=== PATIENT | male | born 1965 | race Caucasian/White ===

== ENCOUNTER 2017-09-04 05:40 | Inpatient (IN) | payer MEDICAID ==
[2017-09-04] VITALS (47 sets, daily range): BP systolic 84–146; BP diastolic 50–99
[~2017-09-04] VITALS: Ht 170.2 cm; Wt 91.6 kg
--- NOTE | 2017-09-04 05:40 | NUR ---
PT BIB AMBULANCE DUE TO DIFFICULTY BREATHING, PT INTUBATED BY STEVE PATTERSON WITH A #7.5 ETT SECURED AT 25 LIP LINE WITH AN ANCHOR FAST. PT PLACED ON VENT WITH NOTED SETTINGS AC 10 VT 500 FIO2 50% PEEP +5. GOOD COLOR CHANGE ON EZ CAP NOTED. REPORT GIVEN TO DAYSHIFT FOR CONTINUITY OF CARE.
--- NOTE | 2017-09-04 05:40 | NUR ---
52/M BIBA FOR SOB, PER EMS PT WAS FOUNG ON THE STREETS, UNKNOWN PMH PT SATS AT 84% WHILE BAGGING. EMS ATTEMPTED RSI, UNABLE TO ESTABLISH. ER MD GLASGOW ,RT, AT BEDSIDE 0544 RSI STARTED, ETOMIDATE 20MG IVP IN PER VERBAL ORDER- GLASGOW 544 SUCCINYLCHOLINE 60MG IVP IN PER VERBAL ORDER- GLASGOW 545 MYAH UGARTE ATTEMPTING INTUBATION 0552 PT CARLOS AT 43, VERBAL ORDER TO GIVE ATROPINE 1MG, PT AT 92HR 0559 VERBAL ORDER TO GIVE SUCC 60MG 0559 VERBAL ORDER TO GIVE SUCC 40MG 0600 ETT ESTABLISHED, SATS 93% ON VENT, RT AT BEDSIDE CXR STAT CALLED. Addendum: 09/04/17 at 0711 by MARIO PT HAS FIRM MASS ON NECK
--- NOTE | 2017-09-04 05:40 | NUR ---
BIBA TO ER BED 10
[2017-09-04] MEDS ORDERED: PROPOFOL 200 MG/20 ML VIAL IV ONE (06:08)
[2017-09-04] MEDS ORDERED: PROPOFOL 1000 MG/100 ML PREMIX 100 ML IV ONE ×2 (06:08→06:10)
[2017-09-04] MEDS ORDERED: ALBUTEROL SULFATE/IPRATROPIU 3 ML SOL IH ONE ×2 (06:10→06:28)
--- NOTE | 2017-09-04 06:10 | NUR ---
RECIVED PT INTUBATED WITH 7.5 28 CM AT THE GUM LINE BREATH SOUNDS PRESENT BIAT PLACED ON VENT WITH SETTINGS CHARTED X RAY DONE ETT BACKED OUT TO 24 ANOTHER XRAY DONE TUBE PLACEMENT OK XRAY CHECKED BY DR PATY SULLIVAN PT FOR SPUTUM AND SENT TO LAB VENT PLUGGED INTO RED OUTLET AMBU BAG AT BEDSIDE
--- NOTE | 2017-09-04 06:50 | NUR ---
PT KICKING AND RESTLESS, ATTEMPTING TO PULL OUT TUBES AND IV LINES. ATTEMPT TO REORIENT AND CALM PT, UNSUCCESSFUL, PLACED IN SOFT WRIST RESTRAINTS.
--- NOTE | 2017-09-04 07:00 | NUR ---
PT REMOVED FROM RESTRAINTS, PT STILL ATTEMPTING TO KICK, MOVE AND PULL OUT TUBING, PT PLACED BACK IN RESTRAINTS, WILL CONTINUE TO MONITOR, SKIN INTACT, +CMS.
[2017-09-04 07:08] LABS: HEMOGLOBIN 12.2 g/dL (12.0-18.0); MEAN CORPUSCULAR HEMOGLOBIN 33 pg (27-31); MEAN CORPUSCULAR HGB CONC 35 g/dL (33-37); MEAN CORPUSCULAR VOLUME 95 fL (80-94); PLATELET COUNT (AUTO) 289 K/uL (140-450); RED BLOOD CELL COUNT(AUTO) 3.68 MIL/uL (4.20-6.10); RED CELL DISTRIBUTION WIDTH 12.2 % (11.6-13.7); WHITE BLOOD COUNT (AUTO) 19.6 K/uL (4.8-10.8)
[2017-09-04] MEDS ORDERED: PIPERACILLIN/TAZOBACTAM 4.5 GM in DEXTROSE 5% 100 ML IV ONE (07:10)
[2017-09-04] MEDS ORDERED: NACL 0.9% 1,000 ML IV SCH ×2 (07:14→08:15)
--- NOTE | 2017-09-04 07:15 | NUR ---
Pt report given to KO CARDONA. Transfer of care at this time.
[2017-09-04] MEDS: NACL 0.9% 1,000 ML IV SCH ×4 (07:17→21:07)
[2017-09-04 07:24] LABS: LYMPHOCYTES % (MANUAL) 8 % (20-46); MONOCYTES % (MANUAL) 4 % (5-12)
[2017-09-04] MEDS ORDERED: PIPERACILLIN/TAZOBACTAM 2.25 GM VIAL IV ONE (07:27)
--- NOTE | 2017-09-04 07:30 | NUR ---
ASSUMED PATIENT CARE, CONCUR WITH PREVIOUS ASSESSMENTS. AIRWAY: ON VENT AC 14, FIO2 100%, TV 550, PEEP 5. 7.5 ETT AT 25 CM LIP LINE. LUNG SOUNDS: RHONCHI, WHEEZES. SEDATION WITH PROPOFOL AT 40 MCG/KG/MIN, GCS=3. SWEDISH 16 BULLARD CATHETER FOR CRITICALLY ILL I&O MONITORING.
--- NOTE | 2017-09-04 07:30 | NUR ---
CHANGED VT TO 550 AND CHANGED RR [address] PARADA
[2017-09-04 07:31] LABS: ALBUMIN 3.4 g/dL (3.4-5.0); ANION GAP 16.4 (8-16); CREATININE 1.6 mg/dL (0.7-1.3); POTASSIUM 3.4 mmol/L (3.5-5.1); TOTAL BILIRUBIN 0.6 mg/dL (0.0-1.0)
[2017-09-04 08:10] LABS: PROTHROMBIN TIME 12.6 secs (10.8-13.4)
[2017-09-04] MEDS ORDERED: ACETAMINOPHEN 325 MG TAB PO PRN (08:20)
[2017-09-04] MEDS ORDERED: ACETAMINOPHEN 325 MG TAB NG PRN (08:30)
[2017-09-04] MEDS ORDERED: MIDAZOLAM MDV 50 MG in NACL 0.9% 40 ML IV PRN (08:30)
[2017-09-04 08:39] LABS: APPEARANCE,URINE CLEAR (CLEAR); BILIRUBIN,URINE NEGATIVE (NEGATIVE); BLOOD, URINE 1+ (NEGATIVE); COLOR,URINE YELLOW (YELLOW); LEUKOCYTE ESTERASE ,URINE NEGATIVE (NEGATIVE); NITRITE, URINE NEGATIVE (NEGATIVE); UGLUCOSE 1+ (NEGATIVE)
[2017-09-04] MEDS ORDERED: ALBUTEROL SULFATE/IPRATROPIU 3 ML SOL IH PRN (08:40)
--- NOTE | 2017-09-04 09:25 | NUR ---
DISPO AND MEDICAL DECISION MAKING, INPATIENT ICU ADMISSION. BEDSIDE REPORT GIVEN TO WEB SERVICES DEVELOPER. CONTINUITY OF CARE ENDORSED. TRANSPORTED VIA GURNEY WITH RT, EMT, AND RN VIA ACLS PROTOCOL.
--- NOTE | 2017-09-04 09:37 | NUR ---
received patient from ED per erika. Bedside report received. Patient on ETT to vent. Right and left hand and right AC peripheral iv patent and intact. Skin warm to touch wnl, toenails wnl, with hair growth, scarring to left knee and right medial ankle and +2 bilateral pedal pulses. No edema noted. FC in place to clear yellow urine in moderate amount. call light within reach. bed at lowest possible position. will continue to monitor patient.
--- NOTE | 2017-09-04 09:37 | NUR ---
PT TRANSFERED TO ICU [address] JACQUES BEDSIDE CHANGED VENT SETTINGS FROM AC TO ACPC CHARTED VENT PLUGGED INTO RED OUTLET AMBU BAG BEDSIDE
[2017-09-04 09:45] LABS: RBC,URINE 0-5 (RARE) /HPF (0-5); WBC,URINE 0-5 (RARE) /HPF (0-5)
[2017-09-04 09:57] LABS: FREE T4 (FREE THYROXINE) 0.14 ng/dL (0.76-1.46); PHOSPHORUS 4.6 mg/dL (2.5-4.9)
[2017-09-04 10:42] LABS: CHOL/HDL RATIO 2.4 (1-4.5)
[2017-09-04 10:44] LABS: BARBITURATE, URINE NEG. ng/ml (NEG <=200); BENZODIAZEPINE, URINE NEG. ng/mL (NEG <=200); CANNABINOID, URINE NEG. ng/mL (NEG <=50); COCAINE, URINE NEG. ng/mL (NEG <=300); OPIATE, URINE NEG. ng/mL (NEG <=2000); PHENCYCLIDINE SCREEN,URINE NEG. ng/mL (NEG <=25)
--- NOTE | 2017-09-04 11:10 | NUR ---
REPORT GIVEN TO RAGHAV CARDONA FOR CONTINUITY OF CARE. PATIENT IN STABLE CONDITION.
[2017-09-04 11:31] LABS: THYROID STIMULATING HORMONE 94.19 uIU/mL (0.34-3.74)
[2017-09-04] MEDS ORDERED: LEVOTHYROXINE 200 MCG VIAL IV SCH (13:00)
[2017-09-04] MEDS: ALBUTEROL SULFATE/IPRATROPIU 3 ML SOL IH SCH ×2 (13:18→19:16)
--- NOTE | 2017-09-04 13:34 | NUR ---
decreased pressure control to 16 rn aware
[2017-09-04] MEDS ORDERED: KCL 20 MEQ/WATER INJ PREMIX 200 ML IV ONE (13:45)
--- NOTE | 2017-09-04 13:46 | NUR ---
FENTANYL 40MCG AT 4ML ONGOING, PT EYES CLOSE, OFF RESTRAINT,BULLARD OUTPUT AT THIS TIME 1800 ML
[2017-09-04] MEDS: LEVOTHYROXINE 200 MCG VIAL IV SCH (14:10)
[2017-09-04] MEDS: methylPREDNISolone SS 40 MG/ML VIAL IVP SCH ×2 (14:10→21:02)
--- NOTE | 2017-09-04 14:28 | NUR ---
DR. BONILLA HERE PER JUST D/C FENTANYL FOR NOW AND OBSERVE PT
[2017-09-04] MEDS ORDERED: POTASSIUM CHLORIDE 40 MEQ in NACL 0.9% 250 ML IV SCH (14:30)
[2017-09-04] MEDS: PIPER/TAZO 3.375GM/D5W PREMIX 50 ML IV SCH ×2 (15:16→19:53)
--- NOTE | 2017-09-04 15:39 | NUR ---
DECREASED PC TO 14 AND DECREASED FIO2 TO .80 RN AWARE
--- NOTE | 2017-09-04 15:39 | NUR ---
endorsed to sadaf CARDONA
[2017-09-04] MEDS: LEVOFLOXACIN 750 MG/D5W PREMIX 150 ML IV SCH (15:56)
--- NOTE | 2017-09-04 17:13 | NUR ---
VITAL SIGNS STABLE. NO S/SX OF ACUTE DISTRESS AT THIS TIME. SAFETY MEASURES ENSURED. WILL CONTINUE TO MONITOR.
--- NOTE | 2017-09-04 17:54 | NUR ---
CONTINUED TO MONITOR PT ON VENT WITH SETTINGS CHARTED BREATH SOUNDS PRESENT BILAT COARSE SXN PT WITH MIN TO MOD AMT REDDISH SECS AMBU BAG AT BEDSIDE VENT PLUGGED INTO RED OUTLET
--- NOTE | 2017-09-04 19:20 | NUR ---
REPORT GIVEN TO RACE AND SPORTS BOOK WRITER RN FOR CONTINUITY OF CARE. NO ACUTE DISTRESS NOTED AT THIS TIME.
--- NOTE | 2017-09-04 19:30 | NUR ---
ASSUMED CARE OF PT.INITIAL ASSESSMENT COMPLETED.PT SEDATED.SR ON MONITOR.W/OGT NOTED.PLACEMENT VERIFIED W/RN PAM GUERRERO.ON OGT FEEDING NUTREN PULMONARY AT 30ML/HR.W/PERIPHERAL IV TO RT AC G18 INTACT INFUSING IVF ORDERED AND VERSED DRIP AT 1MG/HR.SALINE LOCK TO LT AND RT WRIST G20.W/BULLARD CATHETER TO BSD DRAINING SMALL AMT OF YELLOW URINE.SKIN INTACT.FLACC 0
--- NOTE | 2017-09-04 20:00 | NUR ---
ORAL CARE USING VAP KIT RENDERED.PT ON DAILY PROTONIX FOR GI PROPHYLAXIS AND HEPARIN FOR DVT PROPHYLAXIS.REPOSITIONED
--- NOTE | 2017-09-04 21:00 | NUR ---
PHONE CALL TO DR HODGE; VERIFIED SOLU MEDROL AND SOLU CORTEF FOR 2100; SAID TO GIVEN BOTH MEDICATION ORDERED
[2017-09-04] MEDS: HYDROCORTISONE NA SUCC 100 MG/2 ML VIAL IV SCH (21:01)
--- NOTE | 2017-09-04 23:05 | NUR ---
PTS CONDITION REMAINS UNCHANGED.REPOSITIONED.FLACC 0
[2017-09-05] VITALS (35 sets, daily range): BP systolic 84–127; BP diastolic 47–90
--- NOTE | 2017-09-05 02:00 | NUR ---
NO CHANGE IN CONDITION.REPOSITIONED.FLACC 0.SECRETIONS SUCTIONED NEEDED.
[2017-09-05] MEDS: PIPER/TAZO 3.375GM/D5W PREMIX 50 ML IV SCH ×4 (03:38→20:20)
[2017-09-05] MEDS: ALBUTEROL SULFATE/IPRATROPIU 3 ML SOL IH SCH ×4 (03:41→20:24)
--- NOTE | 2017-09-05 04:28 | NUR ---
PT STILL SEDATED.OPENS EYES TO SHAKING.ABLE TO NOD OR SHAKE HEAD TO QUESTIONS.STILL ON OGT FEEDING.NO RESIDUALS NOTED.FLACC 0.REPOSITIONED
[2017-09-05] MEDS: HYDROCORTISONE NA SUCC 100 MG/2 ML VIAL IV SCH ×3 (04:58→21:04)
[2017-09-05] MEDS: methylPREDNISolone SS 40 MG/ML VIAL IVP SCH ×3 (04:58→21:04)
[2017-09-05] MEDS: NACL 0.9% 1,000 ML IV SCH ×3 (04:59→23:06)
[2017-09-05 05:18] LABS: HEMATOCRIT 40.5 % (36-52); HEMOGLOBIN 13.5 g/dL (12.0-18.0); MEAN CORPUSCULAR HEMOGLOBIN 32 pg (27-31); MEAN CORPUSCULAR HGB CONC 33 g/dL (33-37); MEAN CORPUSCULAR VOLUME 96 fL (80-94); PLATELET COUNT (AUTO) 285 K/uL (140-450); RED BLOOD CELL COUNT(AUTO) 4.21 MIL/uL (4.20-6.10); RED CELL DISTRIBUTION WIDTH 12.4 % (11.6-13.7); WHITE BLOOD COUNT (AUTO) 16.1 K/uL (4.8-10.8)
--- NOTE | 2017-09-05 05:38 | NUR ---
LOWERED FIO2 TO 50%. SATS ATBTHIS TIME ARE 96%
[2017-09-05 06:18] LABS: ANION GAP 16.3 (8-16); CREATININE 1.7 mg/dL (0.7-1.3); POTASSIUM 3.3 mmol/L (3.5-5.1)
[2017-09-05 06:19] LABS: CHOL/HDL RATIO 2.2 (1-4.5); MAGNESIUM 1.8 mg/dL (1.8-2.4); PHOSPHORUS 4.6 mg/dL (2.5-4.9)
[2017-09-05 06:23] LABS: LYMPHOCYTES % (MANUAL) 10 % (20-46); MONOCYTES % (MANUAL) 2 % (5-12)
--- NOTE | 2017-09-05 06:32 | NUR ---
DR SYKES IN THE UNIT.UPDATED ON PTS PRESENT CONDITION.MADE AWARE PTS URINE OUTPUT 140ML THIS SHIFT.NO NEW ORDER AT THIS TIME.
--- NOTE | 2017-09-05 07:30 | NUR ---
RECEIVE REPORT FROM NANCY CARDONA .PT SLEEPING UNDER SEDATION ORAL INTUBATED ETT TO VENT IV FLUID ON RT AC AND RT HAND ALSO LEFR HAND, THE SITES IS DRY AND INTACT HIS NECK HAVE MASS ON HE CAN ONLY TURN TO RT. SIDE. SKIN INTACT NG TUBE FEEDING WITH NUTREN PULMO. ABD SOFT. B/S ACTIVE, BULLARD CATH DRAIN DARK ELOINA URINE.
[2017-09-05] MEDS ORDERED: KCL 20 MEQ/WATER INJ PREMIX 200 ML IV ONE (08:20)
--- NOTE | 2017-09-05 08:20 | NUR ---
DR RICO AND HIS TEAM MAKING ROUND.
[2017-09-05] MEDS: LEVOTHYROXINE 200 MCG VIAL IV SCH (08:35)
[2017-09-05] MEDS: PANTOPRAZOLE 40 MG INJ VIAL IVP SCH (08:35)
--- NOTE | 2017-09-05 08:35 | NUR ---
PT HAS BEEN SCREENED AND CATEGORIZED HIGH NUTIRITON RISK. PT WILL BE SEEN WITHIN 1-2 DAYS OF ADMISSION. 09/04/17-09/05/[address]
--- NOTE | 2017-09-05 09:17 | NUR ---
RECEIVED CALL BACK FROM REGARDING ABG RESULTS, PHYSICIAN STATES SHE WILL CALL BACK AT A LATER TIME FOR RESULTS.
[2017-09-05] MEDS ORDERED: POTASSIUM CHLORIDE 40 MEQ in NACL 0.9% 250 ML IV SCH (09:30)
--- NOTE | 2017-09-05 10:15 | NUR ---
CALLED BACK AND ABG RESULTS WERE GIVEN. PHYSICIAN REQUESTS RR DECREASED TO 12.
--- NOTE | 2017-09-05 10:30 | NUR ---
GEORGIE PENA ON UNIT TURN OFF SEDATION FOR SEDATION VACATION.
[2017-09-05] MEDS ORDERED: PROBIOTIC SCREEN 1 EA MISC MC PRN (11:10)
--- NOTE | 2017-09-05 11:11 | NUR ---
FIO2 DECREASED TO 40%. PT NOT SOB NOT IN RESPIRATORY DISTRESS.
--- NOTE | 2017-09-05 11:15 | NUR ---
PT OFF SEDATION AND PLACED ON CPAP 5 PS 12 PER REQUEST OF . PT TOLERATING WELL AT THIS TIME WILL MONITOR CLOSELY.
--- NOTE | 2017-09-05 11:32 | NUR ---
PT REPEATEDLY GOES APNEIC DURING SBT. BACKUP VENTILATION MODE TURNED ON. PT RETURNED TO ORIGINAL VENT SETTINGS. NURSE MERLYN GRAJEDA.
--- NOTE | 2017-09-05 13:22 | NUR ---
PT SUCTIONED OBTAINED SMALL AMOUNT OF THICK YELLOW SECRETIONS, ETT AIRWAY IS PATENT AND REMAINS SECURE.
[2017-09-05] MEDS: fentaNYL 1 MG in NACL 0.9% 80 ML IV PRN (14:11)
--- NOTE | 2017-09-05 14:11 | NUR ---
BACK ON FENTANYL VITAL SIGN WITH IN NORMAL LIMIT.
--- NOTE | 2017-09-05 14:16 | NUR ---
09/05/2017 RD INITIAL ASSESSMENT COMPLETED PLEASE REFER TO NUTRITION ASSESSMENT UNDER CARE ACTIVITY FOR ESTIMATED NUTRITIONAL NEEDS. PT RECEIVING NUTREN PULMONARY @ 30 ML/HOUR FOR NUTRIITON SUPPORT. THIS IS PROVIDING 1080 KCAL AND 49 GM PRO/DAY TO MEET 59% EST KCAL AND 45% EST PRO NEEDS/DAY. MAY CONSIDER: NUTREN PULMONARY @ 60 ML/HR THIS WILL PROVIDE 2160 KCALS, 98 GM PRO AND 1126 ML WATER PER DAY. THIS WILL MEET 100% EST KCAL AND 90% EST PRO NEEDS/DAY RD TO FOLLOW-UP IN 2-3 DAYS PATIENT IS HIGH RISK. LA NENA WATTS, RD
[2017-09-05 14:19] LABS: T3 UPTAKE 17 % (24-39)
--- NOTE | 2017-09-05 14:45 | NUR ---
ABLE TO OBTAIN PT.MOTHER TELEPHONE CALL AND GET IN TOUCH WITH HER.
[2017-09-05] MEDS: LEVOFLOXACIN 750 MG/D5W PREMIX 150 ML IV SCH (15:12)
--- NOTE | 2017-09-05 16:00 | NUR ---
PATIEN BROTHER VERONICA BISWAS CALL ,HAVE HIM GET IN OUCH WITH DR. ARGUETA
--- NOTE | 2017-09-05 16:25 | NUR ---
CONSENT FOR CT SCAN WITH CONTRASS OBTAIN FROM YVON BISWAS.
--- NOTE | 2017-09-05 17:34 | NUR ---
PT REMAINS ON DOCUMENTED SETTINGS. ETT REMAINS SECURE WITH A PATENT AIRWAY. PT ORALLY SUCTIONED. PT IS NOT SOB AND NOT IN RESPIRATORY DISTRESS. VENT ALARMS REMAIN ON AND FUNCTIONING.
[2017-09-05 17:59] LABS: T4 (THYROXINE) <.1 ug/dL (4.5 - 12.0)
--- NOTE | 2017-09-05 19:30 | NUR ---
REPORT GIVE TO TRESSA CARDONA.
--- NOTE | 2017-09-05 19:31 | NUR ---
RECEIVED REPORT FORM DULCE ZULETA AT BEDSIDE, PT IS SEDATED, RASS 0, ON SOFT RESTRAIN TO CLAUDIO.WRIST. FLACC 0, VSS, ETT TO VENT WITH SETTING OF PC, FIO2 40, RR 12, PEEP 6, RHONCHI LUNG SOUNDS, OTG IN PLACE WITH FEEDING ARTS THERAPIST AT 50ML/HR, 0 RESIDUAL AT THIS TIME, PERIPHERAL LINE TO RIGHT FOREARM 18GA AND LEFT HAND 20GA, RUNNING NS AT 126ML/HR, FENTANYL AT 45MCG/HR. SR ON DRILLING AND PRODUCTION SUPERINTENDENT, SOFT ABDOMEN WITH ACTIVE BOWEL SOUNDS, BULLARD CATHETER IN PLACE WITH CLEAR YELLOW URINE VIA GRAVITY. SKIN IS INTACT, WARM AND DRY TO TOUCH, GENERALIZED WEAKNESS NOTED. HOB ELEVATED 30 DEGREES, SAFETY PRECAUTION IN PLACE, WILL CONTINUE TO MONITOR.
--- NOTE | 2017-09-05 20:00 | NUR ---
PT IS AWAKE AND CALM, ABLE TO KNOCK HEAD TO ANSWER SIMPLE QUESTIONS, RELEASED RESTRAIN AT THIS TIME DUE TO PT KNOCKED HEAD TO AGREE TO NOT REMOVE TUBES OR DO ANY THING HURT HIMSELF.
--- NOTE | 2017-09-05 20:25 | NUR ---
PT RECEIVED FROM [facility] ON NOTED VENT SETTINGS. PT AWAKE, HAS A #7.5 ETT SECURED AT 23 LIP LINE WITH AN ANCHOR FAST. BREATH SOUNDS DIMINISHED RHONCHI, HHN TX GIVEN VIA INLINE ORDERED. PT LAVAGED AND SUCTIONED SMALL AMOUNT THICK YELLOW SECRETIONS. NO ADVERSE EFFECTS NOTED. VENT ALARMS ON AND AUDIBLE. VENT PLUGGED INTO RED ELECTRICAL OUTLET. AMBU BAG AT [facility].
--- NOTE | 2017-09-05 22:00 | NUR ---
PT SMALL AMOUNT OF NOSE BLEEDING NOTED, DR. HODGE MADE AWARE. VSS, NO S/S OF DISTRESS, POSITION CHANGED FOR OFF LOAD PRESSURE.
--- NOTE | 2017-09-05 23:26 | NUR ---
VENT CHECKED. PT AWAKE, LAVAGED AND SUCTIONED SMALL AMOUNT THICK PALE YELLOW SECRETIONS. NO ADVERSE EFFECTS NOTED.
[2017-09-06] VITALS (54 sets, daily range): BP systolic 101–127; BP diastolic 57–88
--- NOTE | 2017-09-06 | NUR ---
PT IS AWAKE, ABLE TO COMMUNICATE WITH CATE ALFONSO, PT WANTS TO CONTACT HIS FAMILY MEMBERS, INFORMED PT'S BROTHER. ORAL CARE PROVIDED, POSITION CHANGED FOR OFF LOAD PRESSURE.
[2017-09-06] MEDS: ALBUTEROL SULFATE/IPRATROPIU 3 ML SOL IH SCH ×4 (01:46→19:17)
[2017-09-06] MEDS: PIPER/TAZO 3.375GM/D5W PREMIX 50 ML IV SCH ×4 (01:48→21:40)
--- NOTE | 2017-09-06 02:00 | NUR ---
PT IS RESTING IN BED, NO CHANGE OF CONDITION AT THIS TIME, POSITION CHANGE FOR OFF LOAD PRESSURE.
--- NOTE | 2017-09-06 03:44 | NUR ---
VENT CHECKED. HME CHANGED. PT LAVAGED AND SUCTIONED FOR MOD AMOUNT THICK YELLOW SECRETIONS. NO ADVERSE EFFECTS NOTED.
--- NOTE | 2017-09-06 04:00 | NUR ---
AM CARE AND F/C PROVIDED, ORAL CARE PROVIDED, POSITION CHANGED FOR OFF LOAD PRESSURE. VSS.
[2017-09-06] MEDS: HYDROCORTISONE NA SUCC 100 MG/2 ML VIAL IV SCH ×3 (05:13→21:42)
[2017-09-06] MEDS: methylPREDNISolone SS 40 MG/ML VIAL IVP SCH ×3 (05:14→21:41)
[2017-09-06 05:55] LABS: HEMATOCRIT 35.2 % (36-52); HEMOGLOBIN 11.5 g/dL (12.0-18.0); MEAN CORPUSCULAR HEMOGLOBIN 32 pg (27-31); MEAN CORPUSCULAR HGB CONC 33 g/dL (33-37); MEAN CORPUSCULAR VOLUME 97 fL (80-94); PLATELET COUNT (AUTO) 313 K/uL (140-450); RED BLOOD CELL COUNT(AUTO) 3.63 MIL/uL (4.20-6.10); RED CELL DISTRIBUTION WIDTH 12.4 % (11.6-13.7); WHITE BLOOD COUNT (AUTO) 18.3 K/uL (4.8-10.8)
--- NOTE | 2017-09-06 06:00 | NUR ---
NO CHANGE OF CONDITION AT THIS TIME, VSS, POSITION CHANGED FOR OFF LOAD PRESSURE.
[2017-09-06 06:18] LABS: ANION GAP 15.1 (8-16); CARBON DIOXIDE 23.6 mmol/L (21-32); CREATININE 1.4 mg/dL (0.7-1.3); POTASSIUM 3.7 mmol/L (3.5-5.1)
[2017-09-06 06:28] LABS: FREE T4 (FREE THYROXINE) 0.24 ng/dL (0.76-1.46); MAGNESIUM 1.9 mg/dL (1.8-2.4)
[2017-09-06 06:30] LABS: LYMPHOCYTES % (MANUAL) 6 % (20-46); MONOCYTES % (MANUAL) 4 % (5-12)
--- NOTE | 2017-09-06 07:30 | NUR ---
REPORT GIVEN TO DULCE AYERS AT BEDSIDE FOR CONTINUE OF CARE, PT IS IN STABLE CONDITION AT THIS TIME.
--- NOTE | 2017-09-06 07:30 | NUR ---
PT RESTING IN BED COMFORTABLY. NO ACUTE DISTRESS NOTED. A/O X4. ABLE TO MAKE NEEDS KNOWN VIA WRITTING. SR ON MONITOR. ETT TO VENT A/C PC MODE WITH SETTING FIO2 40 11 [address] 6[address] OGT IN PL[address] ATTACHED TO FEEDING PUMP. ON FEEDING NUTREN PULMONARY AT 50 ML/HR. LUNGS SOUND CLEAR ON AUSCULTATION. PERIPHERAL LINE ON RIGHT FOREARM 18 INTACT. RUNNING FENTANYL AT 45 MCG/HR AND NS AT 126 ML/HR. PERIPHERAL LINE ON LEFT HAND 20 G SALINE LOCK. ABDOMEN ROUND, SOFT AND NON-TENDER. BOWEL SOUND PRESENT ON ALL FOUR QUADRANTS. S/P SURGICAL SCAR ON LEFT KNEE AND RIGHT ANKLE. SCDS ON PLACE. NO C/O PAIN AT THIS TIME. CALL LIGHT WITHIN REACH, BED IN LOW POSITION, LOCKED. WILL CONTINUE TO MONITOR.
--- NOTE | 2017-09-06 08:30 | NUR ---
DR. MAYFIELD IN TO SEE PT. WILL FOLLOW UP ON ORDER.
[2017-09-06] MEDS: NACL 0.9% 1,000 ML IV SCH ×2 (09:00→15:56)
--- NOTE | 2017-09-06 09:20 | NUR ---
PT SUCTIONED OBTAINED SMALL AMOUNT OF THICK YELLOW SECRETIONS, AIRWAY IS PATENT AND ETT IS SECURE. PT IS NOT SOB AND NOT IN RESPIRATORY DISTRESS.
[2017-09-06] MEDS: PANTOPRAZOLE 40 MG INJ VIAL IVP SCH (09:27)
[2017-09-06] MEDS: LEVOTHYROXINE 200 MCG VIAL IV SCH (09:27)
--- NOTE | 2017-09-06 09:30 | NUR ---
ADMINISTERED MEDICATION. TOLERATING WELL. NO ACUTE DISTRESS. NO CHANGWE IN LOC. SR ON MONITOR. WILL CONTINUE TO MONITOR.
--- NOTE | 2017-09-06 10:45 | NUR ---
PT ABLE TO GIVE PROVIDE DAUGHTERS NAME. ABLE TO CONTACT DAUGHTER. GAVE INFORMATION ABOUT PTS CONDITION. WILL VISIT HER DAD THIS EVENING.
--- NOTE | 2017-09-06 12:17 | NUR ---
EXPLAINED PT ABOUT THE PROCEDURE NEEDS TO BE DONE THAT IS CT OF NECK AND CHEST WITH CONTRAST . PT WANTS TO WAIT FOR THE PROCEDURE TILL HIS DAUGHTER COMES. UNABLE TO GET CONSENT FOR THE PROCEDURE.
[2017-09-06] MEDS: MORPHINE SULFATE 2 MG/ML SYR IVP PRN ×2 (12:45→18:37)
[2017-09-06] MEDS: fentaNYL 1 MG in NACL 0.9% 80 ML IV PRN (13:16)
--- NOTE | 2017-09-06 13:21 | NUR ---
PT RESTING IN BED COMFORTABLY. NO ACUTE DISTRESS NOTED. NO CHANGE IN LOC. WILL CONTINUE TO MONITOR. ON CONTINUOUS FENTANYL DRIP.
--- NOTE | 2017-09-06 13:26 | NUR ---
DR. TESFAYE MADE AWARE THAT PT REFUSE TO SIGN CONSENT FORM TILL HIS DAUGHTER COMES.
--- NOTE | 2017-09-06 13:27 | NUR ---
DR. LANDEROS AND RESIDENT GROUP IN TO SEE PT. WILL FOLLOW UP ON ORDER.
[2017-09-06] MEDS: LEVOFLOXACIN 750 MG/D5W PREMIX 150 ML IV SCH (15:22)
--- NOTE | 2017-09-06 16:00 | NUR ---
PT RESTING IN BED COMFORTABLY. NO ACUTE DISTRESS NOTED. NO CHANGE IN LOC. SR ON MONITOR. WILL CONTINUE TO MONITOR.
--- NOTE | 2017-09-06 17:21 | NUR ---
PT REMAINS ON DOCUMENTED VENT SETTINGS NO CHANGES. PT IS ASLEEP AT THIS TIME AND IS NOT DEMONSTRATING ANY SIGNS/SYMPTOMS OF RESPIRATORY DISTRESS. ETT REMAINS SECURE. VENT ALARMS REMAIN ON AND FUNCTIONING.
--- NOTE | 2017-09-06 19:20 | NUR ---
REPORT GIVEN TO NOC SHIFT RN FOR CONTINUITY OF CARE. PT ON STABLE CONDITION.
--- NOTE | 2017-09-06 19:20 | NUR ---
RECEIVED PT ON THE SAME VENT SETTINGS, PT ASLEEP, PT ON PC 20/6, PIP OF 14. PT IS DOING WELL., MED NEB IN LINE, NO DISTRESS NOTED
--- NOTE | 2017-09-06 19:30 | NUR ---
RECEIVED REPORT AT BEDSIDE FROM MORNING SHIFT NURSE DULCE AYERS. PT IS IN BEDREST, ALERT AND ORIENTED X3, ABLE TO FOLLOW THE COMMANDS. ETT TO VENT A/C MODE FIO2 40%, RATE 12, PEEP 6. OGT IN PLACE TO TUBE FEEDING WITH NUTREN PULMO 50ML/HR. PERIPHERAL LINE TO RIGHT FOREARM 20G AND RIGHT HAND 20G WITH NS 126ML/HR AND FENTANYL 4.5ML/HR. BILATERAL LUNG SOUND CLEAR, ACTIVE BOWEL SOUND FROM ALL 4 QUADS. F/C IN PLACE TO GRAVITY WITH CLEAR YELLOW URINE DRAINING. SCD'S IN PLACE. NO ACUTE DISTRESS NOTED. WILL CONTINUE TO MONITOR.
--- NOTE | 2017-09-06 21:00 | NUR ---
GIVEN SCHEDULED MEDS ORDERED, TOLERATED WELL. NO ACUTE DISTRESS NOTED.
--- NOTE | 2017-09-06 23:00 | NUR ---
PT IS SEDATED WITH FENTANYL DRIP, RASS 0, PT AROUSABLE TO VOICE. NO ACUTE DISTRESS NOTED.
[2017-09-07] VITALS (40 sets, daily range): BP systolic 100–127; BP diastolic 54–90
[2017-09-07] MEDS: NACL 0.9% 1,000 ML IV SCH ×4 (00:06→16:42)
[2017-09-07] MEDS: ALBUTEROL SULFATE/IPRATROPIU 3 ML SOL IH SCH ×4 (01:00→19:39)
--- NOTE | 2017-09-07 01:00 | NUR ---
ADMINISTERED IV ABX, TOLERATED WELL. VS IS STABLE, SR ON THE POST OFFICE MARKUP CLERK.
[2017-09-07] MEDS: PIPER/TAZO 3.375GM/D5W PREMIX 50 ML IV SCH ×4 (01:38→20:11)
--- NOTE | 2017-09-07 03:00 | NUR ---
PT IS SEDATED WITH FENTANYL DRIP, AROUSABLE TO VOICE. NO ACUTE DISTRESS NOTED. CALL LIGHT WITHIN THE REACH.
[2017-09-07] MEDS: HYDROCORTISONE NA SUCC 100 MG/2 ML VIAL IV SCH ×3 (05:20→21:13)
[2017-09-07] MEDS: methylPREDNISolone SS 40 MG/ML VIAL IVP SCH ×3 (05:20→21:13)
--- NOTE | 2017-09-07 05:30 | NUR ---
ADMINISTERED SCHEDULED MEDICATIONS ORDERED, TOLERATED WELL. NO ACUTE DISTRESS NOTED. CALL LIGHT WITHIN THE REACH.
--- NOTE | 2017-09-07 05:48 | NUR ---
PT STABLE ALL NIGHT, NO DISTRESS NOTED.
[2017-09-07 06:16] LABS: HEMATOCRIT 31.6 % (36-52); HEMOGLOBIN 10.3 g/dL (12.0-18.0); MEAN CORPUSCULAR HEMOGLOBIN 31 pg (27-31); MEAN CORPUSCULAR HGB CONC 33 g/dL (33-37); MEAN CORPUSCULAR VOLUME 96 fL (80-94); PLATELET COUNT (AUTO) 291 K/uL (140-450); RED BLOOD CELL COUNT(AUTO) 3.29 MIL/uL (4.20-6.10); RED CELL DISTRIBUTION WIDTH 12.5 % (11.6-13.7); WHITE BLOOD COUNT (AUTO) 17.5 K/uL (4.8-10.8)
[2017-09-07 06:39] LABS: LYMPHOCYTES % (MANUAL) 4 % (20-46); MONOCYTES % (MANUAL) 2 % (5-12)
[2017-09-07 06:49] LABS: ANION GAP 14.4 (8-16); CARBON DIOXIDE 24.4 mmol/L (21-32); CREATININE 1.4 mg/dL (0.7-1.3); POTASSIUM 3.8 mmol/L (3.5-5.1)
[2017-09-07 06:53] LABS: MAGNESIUM 1.9 mg/dL (1.8-2.4); PHOSPHORUS 3.4 mg/dL (2.5-4.9)
--- NOTE | 2017-09-07 07:10 | NUR ---
RECEIVED REPORT FROM NOC SHIFT RN. PT A/O X3. NO ACUTE DISTRESS. SR ON MONITOR. PUPILS REACTIVE TO LIGHT. PT ON ETT TO VENT WITH AC 12 FIO2 [address]. RESIDUAL 0. FEEDING ON HOLD FOR CT CONTRAST. LUNGS SOUND CLEAR ON AUSCULTATION. IV PERIPHERAL LINE ON RIGHT FOREARM AND RIGHT HAND 20 G, INTACT. PT ON FENTANYL DRIP AT 45 MCG/HR. NS RUNNING AT 126 ML/HR. ABDOMEN SOFT, ROUND AND NON TENDER. BOWEL SOUND PRESENT ON AUSCULTATION. BULLARD'S CATH IN PLACE DRAINING YELLOW URINE VIA GRAVITY. S/P SURGICAL SCAR ON LEFT KNEE AND RIGHT ANKLE. SKIN DRY AND WARM TO TOUCH. PT ABLE TO WRITE TO MAKE NEEDS KNOWN. FOLLOW SIMPLE COMMANDS. CALL LIGHT WITHIN REACH, BED IN LOW POSITION LOCKED. WILL CONTINUE TO MONITOR.
--- NOTE | 2017-09-07 07:10 | NUR ---
REPORT GIVEN TO ARMEN.DULCE. PT IS AWAKE, NO ACUTE DISTRESS NOTED.
--- NOTE | 2017-09-07 08:15 | NUR ---
SEEN BY DR.DR. HUGHES. WILL FOLLOW UP ON ORDER.
--- NOTE | 2017-09-07 08:33 | NUR ---
CALLED DR. FREY. MADE AWARE ABOUT CHEST TUBE SITE BLEEDING. WILL FOLLOW UP ON ORDER.
[2017-09-07] MEDS: LEVOTHYROXINE 200 MCG VIAL IV SCH (08:49)
[2017-09-07] MEDS: PANTOPRAZOLE 40 MG INJ VIAL IVP SCH (08:50)
[2017-09-07] MEDS: CALCIUM CARB/VIT-D 500 MG/200 IU 1 TAB PO SCH ×2 (08:50→21:09)
--- NOTE | 2017-09-07 09:05 | NUR ---
ADMINISTERED MEDICATION PER ORDER. TOLERATING WELL. NO ACUTE RESPIRATORY DISTRESS. NO CHANGE IN LOC. WILL CONTINUE TO MONITOR.
--- NOTE | 2017-09-07 11:08 | NUR ---
PT TAKEN TO RADIOLOGY FOR CT SCAN SAFELY. PT ON STABLE CONDITION. VS P 65 BP 112/74 R 17 SPO2 95%.
--- NOTE | 2017-09-07 11:41 | NUR ---
RECEIVED PT FROM RADIOLOGY SAFELY IN STABLE CONDITION.
--- NOTE | 2017-09-07 12:40 | NUR ---
ADMINISTERED MEDICATION PER ORDERED. RESUMED OGT FEEDING VIA FEEDIG PUMP PER PRDER. TOLERATING WELL. KEPT HOB ELEVATED. NO SCUTE DISTRESS. NO CAHNGE IN LOC. WILL CONTINUE TO MONITOR.
[2017-09-07] MEDS: fentaNYL 1 MG in NACL 0.9% 80 ML IV PRN (12:42)
--- NOTE | 2017-09-07 14:56 | NUR ---
PT RESTING IN BED COMFORTABLY. SR ON MONITOR. NO RESPIRATORY DISTRESS. NO CHANGE IN LOC. ABLE TO MAKE NEEDS KNOWN. CONTINUE ON FENTANYL DRIP. CALL LIGHT WITHIN REACH, BED IN LOW POSITION. WILL CONINUE TO MONITOR.
[2017-09-07] MEDS: LEVOFLOXACIN 750 MG/D5W PREMIX 150 ML IV SCH (15:17)
--- NOTE | 2017-09-07 18:01 | NUR ---
PT RESTING IN BED AWAKE. ABLE TO MAKE NEEDS KNOWN. SR ON MONITOR. NO ESPIRATORY DISTRESS. NO CHANGE IN LOC. ON CONTINUOUS FENTANYL DRIP. IV SITE INTACT. CALL LIGHT WITHIN REACH, BED IN LOW POSITION LOCKED. WILL CONTINUE TO MONITOR.
--- NOTE | 2017-09-07 19:20 | NUR ---
RECEIVED REPORT AT BEDSIDE FROM MORNING SHIFT NURSE DULCE AYERS. PT IS ALERT AND ORIENTED X3, ABLE TO WRITE TO MAKE NEED KNOWN AND ABLE TO FOLLOW THE COMMANDS. ETT TO VENT A/C MODE FIO2 40%, RATE 12, PEEP 6. OGT IN PLACE TO TUBE FEEDING WITH NUTREN PULMO 50ML/HR. PERIPHERAL LINE TO RIGHT FOREARM 20G AND RIGHT HAND 20G WITH NS 126ML/HR AND FENTANYL 4.5ML/HR. BILATERAL LUNG SOUND RHONCHI, ACTIVE BOWEL SOUND FROM ALL 4 QUADS. F/C IN PLACE TO GRAVITY WITH CLEAR YELLOW URINE DRAINING. SKIN IS INTACT WITH OLD SURGICAL SCAR TO LEFT KNEE AND RIGHT ANKLE. SCD'S IN PLACE. NO ACUTE DISTRESS NOTED. BED IN LOW POSITION, HOB ELEVATED 30 DEGREE. CALL LIGHT WITHIN THE REACH. WILL CONTINUE TO MONITOR.
--- NOTE | 2017-09-07 19:30 | NUR ---
REPORT GIVEN TO NOC SHIFT RN FOR CONTINUITY OF CARE. PT O STABLE CONDITION.
--- NOTE | 2017-09-07 20:00 | NUR ---
STARTED SCHEDULED IV ABT, TOLERATED WELL. NO ACUTE DISTRESS NOTED. SR ON TREE DRILLER. PB IS IN NORMAL LEVEL. CONTINUE TO MONITOR.
--- NOTE | 2017-09-07 21:30 | NUR ---
ADMINISTERED SCHEDULED MEDICATIONS, PT TOLERATED WELL. OGT PLACEMENT CHECKED, NO RESIDUAL NOTED. CONTINUE TO MONITOR.
--- NOTE | 2017-09-07 23:00 | NUR ---
PT IS IN ASLEEP, AROUSABLE TO VOICE. NO ACUTE DISTRESS NOTED. SR ON THE GEOTECHNICAL FIELD TECHNICIAN. HOB ELEVATED 30 DEGREE. CALL LIGHT WITHIN REACH. CONTINUE TO MONITOR.
[2017-09-08] VITALS (34 sets, daily range): BP systolic 104–141; BP diastolic 55–90
--- NOTE | 2017-09-08 00:30 | NUR ---
PROVIDED ORAL CARE, SMALL AMOUNT WHITE SECRETION FROM MOUTH AND ET TUBE NOTED. NO ACUTE RESPIRATORY DISTRESS NOTED. WILL CONTINUE TO MONITOR.
[2017-09-08] MEDS: PIPER/TAZO 3.375GM/D5W PREMIX 50 ML IV SCH ×3 (02:28→17:17)
--- NOTE | 2017-09-08 02:30 | NUR ---
ADMINISTERED SCHEDULED IV ABX, TOLERATED WELL. NO ACUTE DISTRESS NOTED. SR ON THE MONITOR. 02 SAT 96% WITH VENT AT THIS TIME. WILL CONTINUE TO MONITOR.
[2017-09-08] MEDS: NACL 0.9% 1,000 ML IV SCH ×2 (02:33→09:11)
--- NOTE | 2017-09-08 04:20 | NUR ---
PROVIDED ORAL CARE, TOLERATED WELL. NO ACUTE DISTRESS NOTED.
[2017-09-08 05:11] LABS: BASOPHILS # (AUTO) 0.5 K/uL (0.00-0.22); BASOPHILS % (AUTO) 3.4 % (0.0-2.0); EOSINOPHILS % (AUTO) 0.1 % (0.0-4.0); HEMATOCRIT 31.8 % (36-52); HEMOGLOBIN 10.6 g/dL (12.0-18.0); LYMPHOCYTES # (AUTO) 1.1 K/uL (2.0-11.5); LYMPHOCYTES % (AUTO) 6.9 % (20.5-51.1); MEAN CORPUSCULAR HEMOGLOBIN 32 pg (27-31); MEAN CORPUSCULAR HGB CONC 33 g/dL (33-37); MEAN CORPUSCULAR VOLUME 97 fL (80-94); MONOCYTES # (AUTO) 0.5 K/uL (0.8-1.0); MONOCYTES % (AUTO) 3.2 % (1.7-9.3); NEUTROPHILS # (AUTO) 13.3 K/uL (1.8-7.7); PLATELET COUNT (AUTO) 307 K/uL (140-450); RED BLOOD CELL COUNT(AUTO) 3.29 MIL/uL (4.20-6.10); RED CELL DISTRIBUTION WIDTH 12.5 % (11.6-13.7); WHITE BLOOD COUNT (AUTO) 15.4 K/uL (4.8-10.8)
[2017-09-08] MEDS: methylPREDNISolone SS 40 MG/ML VIAL IVP SCH ×3 (05:11→20:15)
[2017-09-08] MEDS: HYDROCORTISONE NA SUCC 100 MG/2 ML VIAL IV SCH (05:11)
[2017-09-08 05:25] LABS: ANION GAP 13.8 (8-16); CARBON DIOXIDE 25.9 mmol/L (21-32); CREATININE 1.4 mg/dL (0.7-1.3); POTASSIUM 3.7 mmol/L (3.5-5.1)
[2017-09-08 05:30] LABS: MAGNESIUM 1.9 mg/dL (1.8-2.4); PHOSPHORUS 3.9 mg/dL (2.5-4.9)
--- NOTE | 2017-09-08 05:30 | NUR ---
GIVEN SCHEDULED MEDICATIONS ORDERED, TOLERATED WELL. NO ACUTE DISTRESS NOTED. CALL LIGHT WITHIN REACH.
[2017-09-08 05:33] LABS: NEUTROPHILS % (AUTO) 86.4 % (42.2-75.2)
[2017-09-08] MEDS: ALBUTEROL SULFATE/IPRATROPIU 3 ML SOL IH SCH ×3 (07:11→19:26)
--- NOTE | 2017-09-08 07:18 | NUR ---
RECEIVED INTUBATED PT WITH 7.5 ETT SECURED @23 TEETH/GUM ON VENT. SETTINGS PC 14 Tinsp, R 12, PEEP 6 AND FIO2 40%. PT IS IN BED AND WILL OPEN EYES. PT IS NOT SOB AND NOT IN RESPIRATORY DISTRESS AT THIS TIME. THERE IS NO BITING OR KINKING OF ETT. VENT IS PLUGGED INTO A RED OUTLE WITH ALARMS ON AND FUNCTIONING. WILL CONTINUE TO MONITOR.
--- NOTE | 2017-09-08 07:25 | NUR ---
REPORT RECEIVED FROM NIGHT NURSE. PT IS ALERT AND ORIENTED X3, ABLE TO MAKE NEEDS KNOWN BY WRITING. DENIES PAIN OR DISCOMFORT. NORMAL SINUS RHYTHM ON MONITOR. PT IS ETT TO VENT W/ SETTINGS: AC/ PC 12, FIO2 40%, PEEP 6, PINSP 14. BILATERAL RHONCHI AUSCULTATED. NO SOB OR COUGH NOTED AT THIS TIME. OGT IN PLACE RECEIVING TUBE FEEDING NUTREN PULMONARY AT AT 50 ML/HR. PLACEMENT CHECKED. NO RESIDUALS NOTED. PERIPHERAL IVS G20 TO RIGHT HAND AND G20 TO RIGHT FOREARM PATENT AND INTACT, RECEIVING NORMAL SALINE AT 126 ML/HR AND FENTANYL DRIP AT 45 MCG/HR. ABDOMEN SOFT AND NONTENDER, BOWEL SOUNDS ACTIVE X [address] QUADRANTS. BULLARD CATH IN PLACE DRAINING URINE TO GRAVITY DRAINAGE BAG. SCDS IN PLACE FOR VTE PROPHYLAXIS. HOB 30 DEGREES AND BED IN LOWEST POSITION. CALL LIGHT WITHIN REACH AND SAFETY PRECAUTIONS IN PLACE. WILL CONTINUE TO MONITOR.
--- NOTE | 2017-09-08 07:30 | NUR ---
REPORT GIVEN TO DULCE SAMANO. VS IS STABLE AT THIS TIME.
[2017-09-08 08:24] LABS: ALBUMIN 2.7 g/dL (3.4-5.0); FREE T4 (FREE THYROXINE) 0.2 ng/dL (0.76-1.46); THYROID STIMULATING HORMONE 85.62 uIU/mL (0.34-3.74)
[2017-09-08] MEDS: LACTOBACILLUS RHAMNOSUS GG 1 EACH CAP PO SCH (08:30)
[2017-09-08] MEDS: CALCIUM CARB/VIT-D 500 MG/200 IU 1 TAB PO SCH ×2 (08:30→20:15)
[2017-09-08] MEDS: PANTOPRAZOLE 40 MG INJ VIAL IVP SCH (08:30)
--- NOTE | 2017-09-08 08:30 | NUR ---
PATIENT VOICING HIS CONCERNS THAT HE DOES NOT WANT HIS MOTHER TO DO BUSINESS REGARDING HIS CONDITION. HE ALSO STATED THAT HE CAN'T TRUST ANYBODY EXCEPT HIS EX YANY AND DAUGHTER JESSE. PRIMARY RN AWARE. REGENERATOR OPERATOR MANDO RICO AWARE.
[2017-09-08] MEDS: LEVOTHYROXINE 200 MCG VIAL IV SCH (08:33)
--- NOTE | 2017-09-08 08:45 | NUR ---
DR. RICO AND RESIDENT GROUP IN TO SEE PT. WILL FOLLOW UP ON ORDERS.
--- NOTE | 2017-09-08 08:57 | NUR ---
MEDICATIONS ADMINISTERED. PT TOLERATED WELL.
[2017-09-08] MEDS ORDERED: LEVOTHYROXINE 0.05 MG TAB NG SCH (09:00)
[2017-09-08] MEDS ORDERED: CALCIUM GLUCONATE 10% 1,000 MG in NACL 0.9% 50 ML IV SCH (10:00)
--- NOTE | 2017-09-08 11:30 | NUR ---
PT'S AUNT ANTON CAME TO VISIT. PT IS ALERT AND ORIENTED, AND REFUSED TO SEE HER. OBTAINED TELEPHONE NUMBER FROM ANTON. AGREED TO GIVE A CALL IF PT CHANGES HIS MIND AND WANTS TO SEE HER IN FUTURE.
--- NOTE | 2017-09-08 11:49 | NUR ---
SPOKE TO GONZALO FROM [facility] TO REQUEST PATIENT'S MEDICAL RECORDS. SHE STATED THAT WE NEED TO FAX A REQUEST WITH A COVER PAGE. REQUEST FOR MEDICAL RECORDS FAXED AT [phone].
[2017-09-08] MEDS: fentaNYL 1 MG in NACL 0.9% 80 ML IV PRN (12:00)
--- NOTE | 2017-09-08 13:13 | NUR ---
PT IS ASLEEP AT THIS TIME BUT DOES RESPOND WHEN SPOKEN TO. PT SUCTIONED OBTAINED SMALL AMOUNT OF THICK YELLOW SECRETIONS, ETT REMAINS SECURE WITH A PATENT AIRWAY. PT NOT IN ANY DISTRESS.
--- NOTE | 2017-09-08 13:25 | NUR ---
RECEIVED A CALL FROM PT'S MOTHER, JON AND GAVE UPDATES ON PT.
--- NOTE | 2017-09-08 15:03 | NUR ---
BEDSIDE AND PLACED PT ON CPAP 5 PS 12 FIO2 40%.
--- NOTE | 2017-09-08 15:05 | NUR ---
DR. JACQUES IN TO SEE AND EXAMINE PT. RECEIVED ORDER TO DECREASE FENTANYL DRIP FROM 45 MCG/HR TO 10 MCG/HR.
--- NOTE | 2017-09-08 15:24 | NUR ---
09/08/17 RD FOLLOW UP COMPLETED. PLEASE REFER TO NUTRITION PROGRESS NOTE UNDER CARE ACTIVITY FOR ESTIMATED NUTRITION NEEDS. 1. 1. PT RECEIVING NUTREN PULMONARY @ 30 ML/HOUR FOR NUTRIITON SUPPORT. THIS IS PROVIDING 1080 KCAL AND 49 GM PRO/DAY TO MEET 56% EST KCAL AND 43% EST PRO NEEDS/DAY. MAY CONSIDER: NUTREN PULMONARY @ 60 ML/HR, PRO PACK ONCE PER DAY. THIS WILL PROVIDE 2200 KCALS, 113 GM PRO AND 1126 ML WATER PER DAY. THIS WILL MEET 100% EST KCAL AND 99% EST PRO NEEDS/DAY RD TO FOLLOW-UP IN 2-3 DAYS PATIENT IS HIGH RISK. LA NENA WATTS RD
[2017-09-08] MEDS: LEVOFLOXACIN 750 MG/D5W PREMIX 150 ML IV SCH (15:51)
--- NOTE | 2017-09-08 16:00 | NUR ---
VITAL SIGNS STABLE. NO S/SX OF ACUTE DISTRESS NOTED. DENIES PAIN. SAFETY PRECAUTIONS IN PLACE.
--- NOTE | 2017-09-08 16:10 | NUR ---
PT HAS REPEATED EPISODES OF APNEA. SPO2 ALSO DROPPED TO 89-90%. PT RETURNED TO NEW AC VENT SETTINGS . AC 12, VT 500, PEEP 5 AND FIO2 40%. NURSE SAMANO MADE AWARE.
--- NOTE | 2017-09-08 17:29 | NUR ---
PT REMAINS ON AC VENT SETTINGS TOLERATING WELL. PT SUCTIONED OBTAINED SMALL AMOUNT OF THICK YELLOW SECRETIONS. ETT REMAINS SECURE WITH A PATENT AIRWAY. VENT REMAINS PLUGGED INTO A RED OUTLET WITH ALARMS ON AND FUNCTIONING.
--- NOTE | 2017-09-08 17:35 | NUR ---
NO CHANGE OF CONDITION AT THIS TIME. VITAL SIGNS STABLE. SAFETY MEASURES IN PLACE. WILL CONTINUE TO MONITOR.
--- NOTE | 2017-09-08 17:54 | NUR ---
DR. SCHWARTZ IN TO SEE AND EXAMINE PT. WILL FOLLOW UP WITH NEW ORDERS.
--- NOTE | 2017-09-08 19:30 | NUR ---
REPORT GIVEN TO NIGHT NURSE FOR CONTINUITY OF CARE. NO ACUTE DISTRESS AT THIS TIME.
--- NOTE | 2017-09-08 19:31 | NUR ---
RECEIVED REPORT FORM DULCE SAMANO AT BEDSIDE, PT IS AAOX4, NON-VERBAL DUE TO ETT TO VENT, ABLE TO COMMUNICATE WITH CLIP BOARD, C/O PAIN 8/10, COULD NOT SLEEP, ETT TO VENT WITH SETTING OF AC/VC, FIO2 40, RR 12, VT 500, PEEP 6, CLEAR LUNG SOUNDS, OTG IN PLACE WITH FEEDING COLOR PRINT INSPECTOR AT 60ML/HR, 0 RESIDUAL AT THIS TIME, PERIPHERAL LINE TO RIGHT FOREARM 20GA AND RIGHT HAND 20GA, RUNNING NS AT 70ML/HR, FENTANYL AT 10MCG/HR. SR ON PREPARATION SUPERVISOR FREEZING, SOFT ABDOMEN WITH ACTIVE BOWEL SOUNDS, BULLARD CATHETER IN PLACE WITH CLEAR YELLOW URINE VIA GRAVITY. SKIN IS INTACT, WARM AND DRY TO TOUCH, GENERALIZED WEAKNESS NOTED. HOB ELEVATED 30 DEGREES, SAFETY PRECAUTION IN PLACE, WILL CONTINUE TO MONITOR.
--- NOTE | 2017-09-08 19:38 | NUR ---
RECEIVED PT STABLE ON VENT SUPPORT AT DOCUMENTED SETTINGS, SUCTIONED SCANT CLEAR WHITE THIN SECRETIONS, HHN TX GIVEN, TOLERATED WELL, NO RESP DISTRESS OR SOB NOTED AT THIS TIME, PT RESPONSIVE TO COMMANDS AND CAN SOMEHWAT COMMUNICATE WITH GESTURES AND ANSWER YES/NO QUESTIONS, 7.5 ETT SECURED AT PATENT AT 25 CM AT THE LIP, ALARMS SET AND AUDIBLE, AMBU BAG AT BEDSIDE, VENT PLUGGED INTO RED OUTLET, WILL CONT TO MONITOR.
--- NOTE | 2017-09-08 20:30 | NUR ---
ORAL CARE PROVIDED, POSITION CHANGED FOR OFF LOAD PRESSURE, SCHEDULED MEDICATION GIVEN, PT TOLERATED WELL.
--- NOTE | 2017-09-08 21:00 | NUR ---
PT C/O COULD NOT BREATH, FEELING SOMEONE CHOKING HIM. VSS, SUCTION PROVIDED, PT IS VERY ANXIOUS, NAUSEA AND VOMITING WHITE STICKY EMESIS, ZOFRAN GIVEN, CALLED RT. INCREASED SEDATION. WILL CONTINUE TO MONITOR.
[2017-09-08] MEDS: ONDANSETRON 4 MG/2 ML VIAL IM/IVP PRN (21:01)
--- NOTE | 2017-09-08 22:00 | NUR ---
PT IS ASLEEP IN BED AT THIS TIME, NO S/S OF DISTRESS, VSS, POSITION CHANGED FOR OFF LOAD PRESSURE.
[2017-09-09] VITALS (36 sets, daily range): BP systolic 99–137; BP diastolic 58–84
--- NOTE | 2017-09-09 | NUR ---
RASS -2, VSS, DENIES PAIN, ORAL CARE AND SUCTION PROVIDED, POSITION CHANGED FOR OFF LOAD PRESSURE.
[2017-09-09] MEDS: NACL 0.9% 1,000 ML IV SCH ×3 (00:30→12:32)
[2017-09-09] MEDS: PIPER/TAZO 3.375GM/D5W PREMIX 50 ML IV SCH ×5 (00:39→23:57)
[2017-09-09] MEDS: ALBUTEROL SULFATE/IPRATROPIU 3 ML SOL IH SCH ×4 (00:44→19:34)
--- NOTE | 2017-09-09 02:00 | NUR ---
NO CHANGE OF CONDITION AT THIS TIME, VSS, POSITION CHANGED FOR OFF LOAD PRESSURE.
--- NOTE | 2017-09-09 04:00 | NUR ---
PT REFUSED AM CARE, AGITATED, WOULD LIKE TO SLEEP MORE, WILL DO LATER. INCREASED FENTANYL DRIP WILL CONTINUE TO MONITOR.
[2017-09-09] MEDS: methylPREDNISolone SS 40 MG/ML VIAL IVP SCH ×3 (04:41→21:00)
[2017-09-09 05:01] LABS: BASOPHILS # (AUTO) 0.2 K/uL (0.00-0.22); BASOPHILS % (AUTO) 1.5 % (0.0-2.0); EOSINOPHILS # (AUTO) 0.1 K/uL (0-0.4); EOSINOPHILS % (AUTO) 0.9 % (0.0-4.0); HEMATOCRIT 33.7 % (36-52); HEMOGLOBIN 11.1 g/dL (12.0-18.0); LYMPHOCYTES # (AUTO) 1.1 K/uL (2.0-11.5); LYMPHOCYTES % (AUTO) 7.6 % (20.5-51.1); MEAN CORPUSCULAR HEMOGLOBIN 32 pg (27-31); MEAN CORPUSCULAR HGB CONC 33 g/dL (33-37); MEAN CORPUSCULAR VOLUME 96 fL (80-94); MONOCYTES # (AUTO) 0.5 K/uL (0.8-1.0); MONOCYTES % (AUTO) 3.5 % (1.7-9.3); NEUTROPHILS # (AUTO) 12.7 K/uL (1.8-7.7); NEUTROPHILS % (AUTO) 86.5 % (42.2-75.2); PLATELET COUNT (AUTO) 310 K/uL (140-450); RED BLOOD CELL COUNT(AUTO) 3.51 MIL/uL (4.20-6.10); RED CELL DISTRIBUTION WIDTH 12.5 % (11.6-13.7); WHITE BLOOD COUNT (AUTO) 14.6 K/uL (4.8-10.8)
--- NOTE | 2017-09-09 06:00 | NUR ---
X-RAY DONE AT BEDSIDE
[2017-09-09 06:16] LABS: T4 (THYROXINE) 0.7 ug/dL (4.5-12.0)
[2017-09-09 06:16] LABS: FOLIC ACID 10.7 ng/mL (>3.0)
[2017-09-09] MEDS: LEVOTHYROXINE 0.05 MG TAB GT SCH (06:19)
--- NOTE | 2017-09-09 07:12 | NUR ---
RECEIVED PT ON CARESCAPE ON A/C 12 VT 500 PEEP5 FIO2 40 ALARMS ARE ON AND FUNCTIONAL BMV HOB PTS ET TUBE IS SECURE 25 CM CUFF PRESSURE 26 CM H20 BS CL\DIM PT IN HF QUIET HHN I\L WITH 3 MG DUONEB VENT PLUGGED INTO RED OUTLET NO APPARENT DISTRESS
--- NOTE | 2017-09-09 07:25 | NUR ---
REPORT GIVEN TO DULCE SAMANO FOR CONTINUE OF CARE, PT IS IN STABLE CONDITION AT THIS TIME.
--- NOTE | 2017-09-09 07:30 | NUR ---
REPORT RECEIVED FROM NIGHT NURSE. PT IS ALERT AND ORIENTED X 3. ABLE TO MAKE NEEDS KNOWN BY WRITING. NO C/O PAIN OR DISCOMFORT. NSR ON MONITOR. S1 AND S2 HEARD. ETT TO VENT W/ SETTINGS AC 12, 45%, 500, 6. BILATERAL RHONCHI AUSCULTATED. OGT IN PLACE, RECEIVING NURTEN PULMONARY AT 60 ML/HR. NO RESIDUALS. ABDOMEN SOFT, NONTENDER, WITH ACTIVE BOWEL SOUNDS. PERIPHERAL IVS RIGHT FOREARM G20 AND RIGHT HAND G20 PATENT, INTACT, ASYMPTOMATIC, RECEIVING NORMAL SALINE AT 50 ML/HR AND FENTANYL DRIP AT 80 MCG/HR. BULLARD CATH IN PLACE DRAINING URINE TO GRAVITY DRAINAGE BAG. SKIN IS DRY AND WARM TO TOUCH. AFEBRILE. SCDS IN PLACE FOR VTE PROPHYLAXIS. HOB 30 DEGREES. BED IN LOWEST POSITION AND CALL LIGHT WITHIN REACH. NEEDS WELL ATTENDED. WILL CONTINUE TO MONITOR.
--- NOTE | 2017-09-09 07:53 | NUR ---
CALLED DR. KINSEY REGARDING CHEST X RAY RESULT. NO ANSWER RECEIVED. WILL FOLLOW UP.
--- NOTE | 2017-09-09 08:33 | NUR ---
DR. RICO AND RESIDENT GROUP IN TO SEE PT. WILL FOLLOW UP ON ORDERS.
[2017-09-09] MEDS: LACTOBACILLUS RHAMNOSUS GG 1 EACH CAP PO SCH (08:47)
[2017-09-09] MEDS: PANTOPRAZOLE 40 MG INJ VIAL IVP SCH (08:47)
[2017-09-09] MEDS: CALCIUM CARB/VIT-D 500 MG/200 IU 1 TAB PO SCH ×2 (08:47→21:00)
[2017-09-09 09:04] LABS: ANION GAP 16.7 (8-16); CARBON DIOXIDE 22.9 mmol/L (21-32); CREATININE 1.3 mg/dL (0.7-1.3); POTASSIUM 3.6 mmol/L (3.5-5.1)
[2017-09-09] MEDS ORDERED: FUROSEMIDE 40 MG/4 ML VIAL IVP SCH (09:10)
--- NOTE | 2017-09-09 09:10 | NUR ---
OGT ADVANCED 10 CM. PLACEMENT CONFIRMED BY AUSCULTATION. MEDICATIONS ADMINISTERED. PT TOLERATED WELL.
[2017-09-09 09:11] LABS: PHOSPHORUS 4.4 mg/dL (2.5-4.9)
[2017-09-09] MEDS: fentaNYL 1 MG in NACL 0.9% 80 ML IV PRN (09:49)
--- NOTE | 2017-09-09 10:50 | NUR ---
PLACED PT ON CPAP 5 PS 12 FIO2 40 FOR WEANING 1105 RETURNED TO A/C PREVIOUS SETTINGS DUE TO APNEA
--- NOTE | 2017-09-09 11:30 | NUR ---
NO C/O PAIN OR DISCOMFORT. VITAL SIGNS STABLE AT THIS TIME. ABLE TO MAKE NEEDS KNOWN AND NEEDS WELL ATTENDED. SAFETY MEASURES IN PLACE. WILL CONTINUE TO MONITOR.
--- NOTE | 2017-09-09 13:15 | NUR ---
PT IS ASLEEP AT THIS TIME. VITAL SIGNS STABLE. NO S/SX OF ACUTE DISTRESS. WILL CONTINUE TO MONITOR.
[2017-09-09] MEDS: LEVOFLOXACIN 750 MG/D5W PREMIX 150 ML IV SCH (14:32)
--- NOTE | 2017-09-09 15:00 | NUR ---
NO CHANGE OF CONDITION AT THIS TIME. PT IS ASLEEP. FLACC 0. VITAL SIGNS STABLE. NO S/SX OF ACUTE DISTRESS NOTED. WILL CONTINUE TO MONITOR.
--- NOTE | 2017-09-09 16:10 | NUR ---
DR. JACQUES IN TO SEE PT. WILL FOLLOW UP WITH NEW ORDERS.
--- NOTE | 2017-09-09 18:30 | NUR ---
PT IS ASLEEP. NO CHANGE OF CONDITION AT THIS TIME. NO SOB OR OTHER SIGNS OF ACUTE DISTRESS NOTED.
--- NOTE | 2017-09-09 19:30 | NUR ---
REPORT GIVEN TO SUPERVISOR HEAT TREATING RN FOR CONTINUITY OF CARE. PT IS IN STABLE CONDITION.
--- NOTE | 2017-09-09 19:31 | NUR ---
RECEIVED REPORT FORM DULCE SAMANO AT BEDSIDE, PT IS SEDATED, RASS -2, VSS, FLACC 0, ETT TO VENT WITH SETTING OF AC/VC, FIO2 40, RR 12, VT 500, PEEP 5, CLEAR LUNG SOUNDS, OTG IN PLACE WITH FEEDING [employer] VICE PRESIDENT AT 60ML/HR, 0 RESIDUAL AT THIS TIME, PERIPHERAL LINE TO RIGHT FOREARM 20GA AND RIGHT HAND 20GA, RUNNING NS AT 50ML/HR, FENTANYL AT 36MCG/HR. SR ON COLLECTIONS ASSISTANT, SOFT ABDOMEN WITH ACTIVE BOWEL SOUNDS, BULLARD CATHETER IN PLACE WITH CLEAR YELLOW URINE VIA GRAVITY. SKIN IS INTACT, WARM AND DRY TO TOUCH, GENERALIZED WEAKNESS NOTED. HOB ELEVATED 30 DEGREES, SAFETY PRECAUTION IN PLACE, WILL CONTINUE TO MONITOR.
--- NOTE | 2017-09-09 20:30 | NUR ---
NO S/S OF DISTRESS, SUCTION AND ORAL CARE PROVIDED, POSITION CHANGED FOR OFF LOAD PRESSURE.
[2017-09-09] MEDS ORDERED: QUEtiapine FUMARATE 25 MG TAB PO SCH (21:00)
--- NOTE | 2017-09-09 22:00 | NUR ---
PT IS ASLEEP IN BED, VSS, REFUSED REPOSITION AT THIS TIME. RISK AND BENEFIT EXPLAINED, BUT PT STILL REFUSED.
[2017-09-10] VITALS (36 sets, daily range): BP systolic 84–129; BP diastolic 50–82
--- NOTE | 2017-09-10 | NUR ---
SUCTION AND ORAL CARE PROVIDED, NO CHANGE OF CONDITION AT THIS TIME, POSITION CHANGED FOR OFF LOAD PRESSURE.
--- NOTE | 2017-09-10 02:00 | NUR ---
PT IS ASLEEP IN BED, NO S/S OF DISTRESS, VSS. POSITION CHANGED FOR OFF LOAD PRESSURE.
--- NOTE | 2017-09-10 04:00 | NUR ---
AM CARE AND F/C CARE PROVIDED, PT TOLERATED WELL, SUCTION AND ORAL CARE PROVIDED, POSITION CHANGED FOR OFF LOAD PRESSURE.
[2017-09-10 04:50] LABS: HEMATOCRIT 34.4 % (36-52); HEMOGLOBIN 11.3 g/dL (12.0-18.0); MEAN CORPUSCULAR HEMOGLOBIN 31 pg (27-31); MEAN CORPUSCULAR HGB CONC 33 g/dL (33-37); MEAN CORPUSCULAR VOLUME 96 fL (80-94); PLATELET COUNT (AUTO) 306 K/uL (140-450); RED CELL DISTRIBUTION WIDTH 12.5 % (11.6-13.7); WHITE BLOOD COUNT (AUTO) 12.3 K/uL (4.8-10.8)
--- NOTE | 2017-09-10 05:00 | NUR ---
HOLD SEDATION ORDERED. PT IS ASLEEP IN BED, VSS, NO CHANGE OF CONDITION AT THIS TIME.
[2017-09-10] MEDS: methylPREDNISolone SS 40 MG/ML VIAL IVP SCH ×3 (05:10→20:29)
[2017-09-10] MEDS: PIPER/TAZO 3.375GM/D5W PREMIX 50 ML IV SCH ×4 (05:14→23:46)
[2017-09-10 06:11] LABS: PHOSPHORUS 4.7 mg/dL (2.5-4.9)
[2017-09-10 06:13] LABS: ANION GAP 11.9 (8-16); CARBON DIOXIDE 28.7 mmol/L (21-32); CREATININE 1.5 mg/dL (0.7-1.3); POTASSIUM 3.6 mmol/L (3.5-5.1)
[2017-09-10] MEDS: LEVOTHYROXINE 0.05 MG TAB GT SCH (06:19)
[2017-09-10] MEDS: ALBUTEROL SULFATE/IPRATROPIU 3 ML SOL IH SCH ×3 (06:51→19:43)
--- NOTE | 2017-09-10 07:02 | NUR ---
PLACED PT ON CPAP 5 PS 12 PT OFF SEDATION PER RN [id number]
[2017-09-10 07:07] LABS: LYMPHOCYTES % (MANUAL) 10 % (20-46); MONOCYTES % (MANUAL) 9 % (5-12)
--- NOTE | 2017-09-10 07:22 | NUR ---
RETURNED TO A/C PT C\O SOB
--- NOTE | 2017-09-10 07:29 | NUR ---
REPORT GIVEN TO DULCE ESTEBAN AND DULCE ZULETA AT BEDSIDE FOR CONTINUE OF CARE, PT IS IN STABLE CONDITION AT THIS TIME.
--- NOTE | 2017-09-10 08:15 | NUR ---
DR. RICO AND RESIDENTS AT BEDSIDE. UPDATED ON PATIENT.
[2017-09-10] MEDS: PANTOPRAZOLE 40 MG INJ VIAL IVP SCH (08:32)
[2017-09-10] MEDS: NACL 0.9% 1,000 ML IV SCH ×2 (08:32→13:07)
[2017-09-10] MEDS: CALCIUM CARB/VIT-D 500 MG/200 IU 1 TAB PO SCH ×2 (08:34→20:29)
[2017-09-10] MEDS: LACTOBACILLUS RHAMNOSUS GG 1 EACH CAP PO SCH (08:34)
[2017-09-10] MEDS: QUEtiapine FUMARATE 25 MG TAB PO SCH ×2 (08:48→20:30)
--- NOTE | 2017-09-10 09:07 | NUR ---
DAUGHTER AT BEDSIDE, UPDATED ON PATIENT. CALL LIGHT IN REACH.
--- NOTE | 2017-09-10 10:14 | NUR ---
ABG REPORTED TO DR KAUR RETURN TO A/C PREVIOUS SETTINGS
--- NOTE | 2017-09-10 11:09 | NUR ---
CALLED DUE TO PATIENT BEING RESTLESS AND AGITATED. ORDERED TO RESUME FENTANYL.
[2017-09-10] MEDS: fentaNYL 1 MG in NACL 0.9% 80 ML IV PRN (11:53)
--- NOTE | 2017-09-10 12:01 | NUR ---
PATIENT ON FENTANYL DRIP 25 MCG, PATIENT IS ASLEEP. CALL LIGHT WITHIN REACH. WILL CONTINUE TO MONITOR.
[2017-09-10] MEDS: LEVOFLOXACIN 750 MG/D5W PREMIX 150 ML IV SCH (15:46)
--- NOTE | 2017-09-10 15:56 | NUR ---
IN TO SEE PT, WILL FOLLOW UP.
--- NOTE | 2017-09-10 16:16 | NUR ---
09/10/17 RD FOLLOW UP COMPLETED. PLEASE REFER TO NUTRITION PROGRESS NOTE UNDER CARE ACTIVITY FOR ESTIMATED NUTRITION NEEDS. CONTINUE CURRENT DIET ORDER: PT RECEIVING NUTREN PULMONARY @ 60 ML/HR FOR NUTRITON SUPPORT. THIS IS PROVIDING 2160 KCALS, 98 GM PRO AND 1126 ML WATER PER DAY. THIS IS MEETING 100% EST KCAL AND 85% EST PRO NEEDS/DAY--ADEQUATE RD TO FOLLOW-UP IN 2-3 DAYS PATIENT IS HIGH RISK. LA NENA WATTS RD
--- NOTE | 2017-09-10 19:14 | NUR ---
ENDORSED PATIENT TO INFORMATION SYSTEMS PLANNER NURSE. VITAL SIGNS STABLE.
--- NOTE | 2017-09-10 19:30 | NUR ---
ASSUMED CARE OF PT.INITIAL ASSESSMENT COMPLETED.SR ON MONITOR.PT SEDATED ON FENTANYL DRIP AT 25MCG/HR.ORALLY INTUBATED.VENT SETTINGS FIO2 60% TV500 AC12 PEEP5. WITH OGT INTACT.PLACEMENT VERIFIED.NUTREN PULMONARY AT 60ML/HR AND H20 FLUSH 50ML Q4HRS.W/PERIPHERAL IV TO RT F/A INTACT G20 INFUSING ORDERED IVF AND FENTANYL DRIP.W/BULLARD CATHETER TO BSD DRAINING YELLOW COLORED URINE.ADEQUATE AMT.W/SCD TO BLE.SKIN INTACT.FLACC 0
--- NOTE | 2017-09-10 20:00 | NUR ---
ORAL CARE USING VAP KIT RENDERED.PT ON DAILY PROTONIX FOR GI PROPHYLAXIS AND HEPARIN FOR DVT PROPHYLAXIS.REPOSITIONED.
[2017-09-11] VITALS (35 sets, daily range): BP systolic 88–125; BP diastolic 49–85
--- NOTE | 2017-09-11 00:33 | NUR ---
PT ASLEEP;EASILY AROUSABLE. OPENS EYES TO NAME.NO RESIDUAL ON OGT.CONTINUED WITH FEEDING NUTREN PULMONARY.FLACC 0.REPOSITIONED.
[2017-09-11] MEDS: ALBUTEROL SULFATE/IPRATROPIU 3 ML SOL IH SCH ×4 (01:01→19:07)
--- NOTE | 2017-09-11 03:26 | NUR ---
PTS CONDITION REMAINS UNCHANGED.STILL ON FENTANYL DRIP AT 25 MCG/HR.PT ABLE TO OPEN EYES TO VOICE.FLACC 0.REPOSITIONED.
[2017-09-11 05:00] LABS: BASOPHILS # (AUTO) 0.1 K/uL (0.00-0.22); BASOPHILS % (AUTO) 0.8 % (0.0-2.0); EOSINOPHILS # (AUTO) 0.1 K/uL (0-0.4); EOSINOPHILS % (AUTO) 1.1 % (0.0-4.0); HEMOGLOBIN 10.9 g/dL (12.0-18.0); LYMPHOCYTES # (AUTO) 1.5 K/uL (2.0-11.5); LYMPHOCYTES % (AUTO) 11.7 % (20.5-51.1); MEAN CORPUSCULAR HEMOGLOBIN 32 pg (27-31); MEAN CORPUSCULAR HGB CONC 33 g/dL (33-37); MEAN CORPUSCULAR VOLUME 96 fL (80-94); MONOCYTES # (AUTO) 1.1 K/uL (0.8-1.0); MONOCYTES % (AUTO) 8.9 % (1.7-9.3); NEUTROPHILS # (AUTO) 9.7 K/uL (1.8-7.7); NEUTROPHILS % (AUTO) 77.5 % (42.2-75.2); PLATELET COUNT (AUTO) 303 K/uL (140-450); RED BLOOD CELL COUNT(AUTO) 3.43 MIL/uL (4.20-6.10); RED CELL DISTRIBUTION WIDTH 12.8 % (11.6-13.7); WHITE BLOOD COUNT (AUTO) 12.5 K/uL (4.8-10.8)
--- NOTE | 2017-09-11 05:00 | NUR ---
MORNING CARE DONE.ORAL CARE RENDERED.PT REPOSITIONED/NO BM NOTED THIS SHIFT.FLACC 0
[2017-09-11] MEDS: methylPREDNISolone SS 40 MG/ML VIAL IVP SCH ×3 (05:10→20:32)
[2017-09-11] MEDS: PIPER/TAZO 3.375GM/D5W PREMIX 50 ML IV SCH ×4 (05:10→23:47)
[2017-09-11 05:18] LABS: ANION GAP 11.8 (8-16); CARBON DIOXIDE 30.9 mmol/L (21-32); CREATININE 1.3 mg/dL (0.7-1.3); POTASSIUM 3.7 mmol/L (3.5-5.1)
[2017-09-11 05:25] LABS: MAGNESIUM 2.1 mg/dL (1.8-2.4); PHOSPHORUS 5.1 mg/dL (2.5-4.9)
[2017-09-11] MEDS: LEVOTHYROXINE PO SCH ×2 (06:01)
--- NOTE | 2017-09-11 06:13 | NUR ---
PT STILL SEDATED; ON FENTANYL DRIP 25MCG/HR.SR ON MONITOR.FLACC 0
[2017-09-11] MEDS ORDERED: LEVOTHYROXINE 0.05 MG TAB GT SCH (06:30)
--- NOTE | 2017-09-11 08:00 | NUR ---
INITIAL SHIFT ASSESSMENT DONE. SEDATED BUT EASILY AROUSABLE. FOLLOW SIMPLE COMMAND. NO C/O PAIN. ON VENTILATOR, TOLERATING CURRENT SETTINGS WELL. O2 SAT 95-96%. SR ON MONITOR. SBP IN 100'S. NO ECTOPY NOTED. HOB ELEVATED. ON TUBE FEEDING, TOLERATING WELL. NO RESIDUALS NOTED. UPDATED OF PLAN OF CARE. WILL CONTINUE TO MONITOR.
[2017-09-11] MEDS: PANTOPRAZOLE 40 MG INJ VIAL IVP SCH (08:56)
[2017-09-11] MEDS: QUEtiapine FUMARATE 25 MG TAB PO SCH ×2 (08:57→20:32)
[2017-09-11] MEDS: CALCIUM CARB/VIT-D 500 MG/200 IU 1 TAB PO SCH ×2 (08:57→20:32)
[2017-09-11] MEDS: LACTOBACILLUS RHAMNOSUS GG 1 EACH CAP PO SCH (08:57)
--- NOTE | 2017-09-11 10:00 | NUR ---
RESTING IN BED. NO C/O PAIN. TOLERATING VENTILATOR WELL. O2 SAT 95-97%. SR ON MONITOR. SBP IN 100'S-110'S. NO ECTOPY NOTED. HOB ELEVATED. WILL CONTINUE TO MONITOR.
[2017-09-11] MEDS ORDERED: fentaNYL 1 MG in NACL 0.9% 80 ML IV PRN (12:00)
--- NOTE | 2017-09-11 12:00 | NUR ---
REASSESSMENT DONE. NEURO STATUS STILL THE SAME. NO C/O PAIN. TOLERATING CURRENT VENTILATOR SETTINGS WELL. O2 SAT 97-98%. SR ON MONITOR. SBP IN 100'S. NO ECTOPY NOTED. TOLERATING TUBE FEEDING WELL. NO RESIDUALS NOTED. HOB ELEVATED. UPDATED OF PLAN OF CARE. WILL CONTINUE TO MONITOR.
--- NOTE | 2017-09-11 14:00 | NUR ---
RESTING IN BED. NO C/O PAIN. TOLERATING VENTILATOR WELL. O2 SAT 97-99%. SR ON MONITOR. SBP IN 90'S-100'S. NO ECTOPY NOTED. HOB ELEVATED. WILL CONTINUE TO MONITOR.
[2017-09-11] MEDS: LEVOFLOXACIN 750 MG/D5W PREMIX 150 ML IV SCH (15:17)
[2017-09-11] MEDS: NACL 0.9% 1,000 ML IV SCH (15:22)
--- NOTE | 2017-09-11 16:00 | NUR ---
REASSESSMENT DONE. NEURO STATUS UNCHANGED. NO C/O PAIN. TOLERATING CURRENT VENTILATOR SETTINGS WELL. O2 SAT 97-98%. SR ON MONITOR. SBP IN 100'S-110'S. NO ECTOPY NOTED. TOLERATING TUBE FEEDING WELL. NO RESIDUALS NOTED. HOB ELEVATED. UPDATED OF PLAN OF CARE. WILL CONTINUE TO MONITOR.
--- NOTE | 2017-09-11 17:52 | NUR ---
CONTINUED TO MONITOR PT ON VENT WITH SETTINGS CHARTED BREATH SOUNDS PERSENT BILAT COARSE SXN PT WITH MIN AMT RUST SECS AMBU BAG AT BEDSIDE VENT PLUGGED INTO RED OUTLET
--- NOTE | 2017-09-11 18:00 | NUR ---
RESTING IN BED. NO C/O PAIN. TOLERATING VENTILATOR WELL. O2 SAT 97-99%. SR ON MONITOR. SBP IN 110'S. NO ECTOPY NOTED. HOB ELEVATED. WILL CONTINUE TO MONITOR.
--- NOTE | 2017-09-11 18:30 | NUR ---
DR SCHWARTZ IS IN THE ROOM. UPDATED OF STATUS. NO NEW ORDER RECEIVE.
--- NOTE | 2017-09-11 19:05 | NUR ---
REPORT GIVEN TO INCOMING SECURITIES AND REAL ESTATE DIRECTOR RN, DULCE MORALES.
--- NOTE | 2017-09-11 19:16 | NUR ---
RECEIVED PT STABLE ON VENT SUPPORT AT DOCUMENTED SETTINGS, PT AWAKE/ALERT AT THIS TIME ABLE TO GESTURE AND WRITE NOTES TO COMMUNICATE, HHN TX GIVEN, TOLERATED WELL, NO RESP DISTRESS OR SOB NOTED AT THIS TIME, 7.5 ETT SECURED AND PATENT AT 25 CM AT THE LIP, ALARMS SET AND AUDIBLE, AMBU BAG AT BEDSIDE, VENT PLUGGED INTO RED OUTLET, WILL CONT TO MONITOR.
--- NOTE | 2017-09-11 19:30 | NUR ---
ASSUMED CARE OF PT.INITIAL ASSESSMENT COMPLETED.PT SEDATED.AROUSABLE.FOLLOWS SIMPLE COMMANDS.SR ON MONITOR.ORALLY INTUBATED,TOLERATING CURRENT VENT SETTING. OGT INTACT.PLACEMENT VERIFIED.NO RESIDUAL.CONTINUED ON TUBE FEEDING.NUTREN PULMONARY AT 60ML/HR WITH WATER FLUSH.BULLARD CATHETER INTACT.SMALL AMT OF YELLOW URINE NOTED.DENIES PAIN.
--- NOTE | 2017-09-11 20:25 | NUR ---
DR KAUR AT BEDSIDE.PT EXAMINED. FIO2 DECREASED TO 35% .RT AWARE.
--- NOTE | 2017-09-11 21:52 | NUR ---
ABG RESULTS CALLED INTO DR KAUR, PT WILL REMAIN ON VENTILATION TONIGHT PER ABG RESULTS AND DR KAUR VERBAL ORDER, WILL CONT TO MONITOR.
--- NOTE | 2017-09-11 21:53 | NUR ---
RESTARTED FENTANYL DRIP AND OGT FEEDING,PT UNABLE TO TOLERATE WEANING FROM VENT.
[2017-09-12] VITALS (31 sets, daily range): BP systolic 95–123; BP diastolic 48–74
--- NOTE | 2017-09-12 | NUR ---
ORAL CARE USING VAP KIT RENDERED.SECRETIONS SUCTIONED.SMALL AMT OF WHITISH SECRETIONS NOTED.DENIES PAIN WHEN ASKED.NO RESIDUALS ON OGT
[2017-09-12] MEDS: ALBUTEROL SULFATE/IPRATROPIU 3 ML SOL IH SCH ×4 (00:51→21:04)
--- NOTE | 2017-09-12 02:37 | NUR ---
PT ASLEEP;EASILY AROUSABLE.NOT IN ANY DISTRESS AT THIS TIME.FLACC 0
--- NOTE | 2017-09-12 04:00 | NUR ---
PT ASLEEP;NO DISTRESS NOTED.TOLERATING CURRENT VENT SETTING.SECRETIONS SUCTIONED.REPOSITIONED.FLACC 0
[2017-09-12 04:48] LABS: BASOPHILS # (AUTO) 0.4 K/uL (0.00-0.22); BASOPHILS % (AUTO) 3.2 % (0.0-2.0); EOSINOPHILS % (AUTO) 0.1 % (0.0-4.0); HEMATOCRIT 35.2 % (36-52); HEMOGLOBIN 11.5 g/dL (12.0-18.0); LYMPHOCYTES # (AUTO) 1.2 K/uL (2.0-11.5); LYMPHOCYTES % (AUTO) 9.7 % (20.5-51.1); MEAN CORPUSCULAR HEMOGLOBIN 32 pg (27-31); MEAN CORPUSCULAR HGB CONC 33 g/dL (33-37); MEAN CORPUSCULAR VOLUME 97 fL (80-94); MONOCYTES # (AUTO) 0.7 K/uL (0.8-1.0); MONOCYTES % (AUTO) 5.9 % (1.7-9.3); NEUTROPHILS # (AUTO) 9.7 K/uL (1.8-7.7); NEUTROPHILS % (AUTO) 81.1 % (42.2-75.2); PLATELET COUNT (AUTO) 317 K/uL (140-450); RED BLOOD CELL COUNT(AUTO) 3.63 MIL/uL (4.20-6.10); RED CELL DISTRIBUTION WIDTH 12.5 % (11.6-13.7)
[2017-09-12] MEDS: methylPREDNISolone SS 40 MG/ML VIAL IVP SCH ×3 (05:30→20:44)
[2017-09-12] MEDS: PIPER/TAZO 3.375GM/D5W PREMIX 50 ML IV SCH ×4 (05:30→23:53)
[2017-09-12] MEDS: LEVOTHYROXINE PO SCH ×2 (06:03)
--- NOTE | 2017-09-12 06:18 | NUR ---
PT REFUSED MORNING CARE.ORAL CARE DONE.
[2017-09-12 06:52] LABS: POTASSIUM 3.9 mmol/L (3.5-5.1)
[2017-09-12 06:53] LABS: ANION GAP 12.3 (8-16); CARBON DIOXIDE 29.6 mmol/L (21-32); CREATININE 1.3 mg/dL (0.7-1.3); PHOSPHORUS 5.1 mg/dL (2.5-4.9)
--- NOTE | 2017-09-12 07:05 | NUR ---
RECIVED PT ON VENT WITH SETTINGS CHARTED BREATH SOUNDS PRESENT BILAT COARSE SXN PT WITH MIN AMT RUST COLORED SECS AMBU BAG AT BEDSIDE VENT PLUGGED INTO RED OUTLT WILL CONTINUE TO MONITOR PT ON VENT
--- NOTE | 2017-09-12 07:09 | NUR ---
REPORT GIVEN TO ANTON CARDONA FOR CONTINUITY OF CARE.
[2017-09-12] MEDS ORDERED: FUROSEMIDE 40 MG/4 ML VIAL IVP SCH (07:30)
--- NOTE | 2017-09-12 07:30 | NUR ---
RECEIVED PT FROM NEURO PSYCH SALES SPECIALIST RN.PT SEDATED.AROUSABLE TO VOICE .FOLLOWS SIMPLE COMMANDS.SR ON MONITOR.ORALLY INTUBATED,TOLERATING CURRENT VENT SETTING. OGT NUTREN PULMONARY AT 60ML/HR WITH WATER FLUSH, FEEDING WITH 0 RESIDUAL,PLACEMENT VERIFIED..BULLARD CATHETER IN PLACE WITH YELLOW URINE NOTED. SKIN INTACT.CALL LIGHT IN REACH, WILL CONTINUE TO MONITOR.
[2017-09-12] MEDS: PANTOPRAZOLE 40 MG INJ VIAL IVP SCH (08:10)
[2017-09-12] MEDS: CALCIUM CARB/VIT-D 500 MG/200 IU 1 TAB PO SCH ×2 (08:11→20:44)
[2017-09-12] MEDS: LACTOBACILLUS RHAMNOSUS GG 1 EACH CAP PO SCH (08:11)
[2017-09-12] MEDS: CALCIUM ACETATE 667 MG TAB PO SCH ×2 (08:11→17:40)
[2017-09-12] MEDS: QUEtiapine FUMARATE 25 MG TAB PO SCH (08:11)
[2017-09-12] MEDS ORDERED: BISACODYL 10 MG SUPP RC PRN (08:55)
[2017-09-12] MEDS ORDERED: QUEtiapine FUMARATE 25 MG TAB PO SCH (09:00)
--- NOTE | 2017-09-12 09:00 | NUR ---
DUE MEDS GIVEN, PT TOLERATED WELL. ORAL CARE GIVEN, BHAVESH CARE GIVEN.
[2017-09-12] MEDS ORDERED: CALCIUM ACETATE 667 MG TAB PO SCH (09:30)
[2017-09-12 09:39] LABS: MAGNESIUM 2.2 mg/dL (1.8-2.4)
--- NOTE | 2017-09-12 10:20 | NUR ---
CALLED DR. KINSEY, NOTIFIED HER 2 TABLETS PHOSLO GIVEN THIS MORNING, DOES SHE STILL WANT ME TO GIVE ANOTHER TABLET WHICH IS A NEW ORDER, PER DR. KINSEY, DON'T GIVE IT, WILL CARRY OUT.
--- NOTE | 2017-09-12 12:00 | NUR ---
PT STAYING IN BED QUIETLY, NO S/S OF RESPIRATORY DISTRESS NOTED. WILL CONTINUE TO MONITOR.
[2017-09-12] MEDS: LEVOFLOXACIN 750 MG/D5W PREMIX 150 ML IV SCH (14:34)
--- NOTE | 2017-09-12 15:50 | NUR ---
DR. KAUR IN TO SEE PT, PER DR. KAUR, STOP IVF AND CHANGE TO SALINE FLUSH, HOLD FENTANYL, WILL CARRY OUT.
--- NOTE | 2017-09-12 17:00 | NUR ---
PT PLACED BACK TO [facility] PER DR NICHOLSON ORDER CONTINED TO MONITOR PT ON VENT WITH SETTINGS CHARTED BREATH SOUNDS PRESENT BILAT SXN MIN AMT OFF WHITE SECS AMBU BAG AT BEDSIDE VENT PLUGGED INTO RED OUTLET
[2017-09-12] MEDS ORDERED: FUROSEMIDE 40 MG/4 ML VIAL IVP ONE (17:15)
[2017-09-12] MEDS ORDERED: MORPHINE SULFATE 2 MG/ML SYR IVP SCH (17:24)
[2017-09-12] MEDS ORDERED: FUROSEMIDE 20 MG/2 ML VIAL IVP SCH (17:25)
--- NOTE | 2017-09-12 18:00 | NUR ---
TURNED AND REPOSITIONED PT, BED BATH GIVEN.
--- NOTE | 2017-09-12 19:15 | NUR ---
REPORT GIVEN TO VERITO CARDONA.
--- NOTE | 2017-09-12 19:30 | NUR ---
RECEIVED SBAR FROM ANTON CARDONA. GSC 11. PATIENT AWAKE, ALERT, AND ABLE TO NOD OR SHAKE HEAD YES/NO TO QUESTIONS. PATIENT IS ETT TO VENT WITH SETTINGS OF FIO2 45%, TV 500, AC 12, PEEP 5. BREATH SOUNDS CLEAR UPON AUSCULTATION AND BOWEL SOUNDS ARE ACTIVE. THERE IS A OGT PRESENT WITH PATIENT RECEIVING NUTREN PULMONARY AT 60 ML/HR. PATIENT TOLERATING FEEDING WELL WITH 0 ML RESIDUAL ASPIRATED. BULLARD CATHETER IN PLACE DRAINING TO GRAVITY. SCDS IN PLACE FOR VTE PROTOCOL. THERE IS A #20 IN THE RIGHT HAND AND A #20 IN THE RIGHT FOREARM. PATIENT RECEIVING NS AT 5 ML/HR TKO. VSS AND PATIENT AFEBRILE. NO SIGNS OF RESPIRATORY DISTRESS AT THIS TIME. INITIAL ASSESSMENT COMPLETED. HOB AT 30 DEGREES WITH BED IN LOWEST POSITION. CALL LIGHT WITHIN REACH. CONTINUE TO MONITOR PATIENT.
[2017-09-12] MEDS: QUEtiapine FUMARATE 100 MG TAB PO SCH (20:44)
[2017-09-12] MEDS: SODIUM CHLORIDE FLUSH 10 ML SYR IVF SCH (20:56)
--- NOTE | 2017-09-12 21:10 | NUR ---
TOLERATED DUE MEDICATIONS WITH NO ADR. VSS. PATIENT'S NEEDS MET AT THIS TIME. HOB AT 30 DEGREES WITH BED IN LOWEST POSITION. CALL LIGHT WITHIN REACH. CONTINUE TO MONITOR PATIENT.
--- NOTE | 2017-09-12 21:30 | NUR ---
PATIENT RESTLESS IN BED. ASKED IF PATIENT FEELS COMFORTABLE. PATIENT POINTS TO ETT AND MAKES HAND MOTIONS TO DESCRIBE THE ETT IS UNCOMFORTABLE. RT BRANDY PRESENT AT BEDSIDE. FENTANYL DRIP RESUMED AT 25 MCG/HR. CHARGE NURSE ANDREW CARDONA IS AWARE.
--- NOTE | 2017-09-12 22:22 | NUR ---
PATIENT SEDATED AND RESTING IN BED WITH FENTANYL INFUSING 25 MCG/HR. VSS. HOB AT 30 DEGREES WITH BED IN LOWEST POSITION. CONTINUE TO MONITOR PATIENT.
[2017-09-13] VITALS (34 sets, daily range): BP systolic 75–112; BP diastolic 41–78
--- NOTE | 2017-09-13 00:20 | NUR ---
NO SIGNS OF ACUTE RESPIRATORY DISTRESS. VSS AND PT IS AFEBRILE. CONTINUE TO MONITOR PATIENT.
[2017-09-13] MEDS: ALBUTEROL SULFATE/IPRATROPIU 3 ML SOL IH SCH ×4 (01:00→19:09)
--- NOTE | 2017-09-13 02:27 | NUR ---
PATIENT SEDATED AND RESTING IN BED. VSS. NO SIGNS OF ACUTE RESPIRATORY DISTRESS NOTED. HOB AT 30 DEGREES WITH BED IN LOW POSITION. CONTINUE TO MONITOR PATIENT.
--- NOTE | 2017-09-13 04:41 | NUR ---
PATIENT SLEEPING IN BED. NO SIGNS OF RESPIRATORY DISTRESS. VSS. HOB AT 30 DEGREES WITH BED IN LOW POSITION. CONTINUE TO MONITOR PATIENT.
[2017-09-13] MEDS: PIPER/TAZO 3.375GM/D5W PREMIX 50 ML IV SCH ×4 (05:20→23:29)
[2017-09-13] MEDS: methylPREDNISolone SS 40 MG/ML VIAL IVP SCH ×3 (05:20→20:24)
[2017-09-13] MEDS: SODIUM CHLORIDE FLUSH 10 ML SYR IVF SCH ×3 (05:20→20:25)
[2017-09-13 05:25] LABS: BASOPHILS # (AUTO) 0.1 K/uL (0.00-0.22); EOSINOPHILS % (AUTO) 0.4 % (0.0-4.0); HEMOGLOBIN 11.7 g/dL (12.0-18.0); LYMPHOCYTES # (AUTO) 1.1 K/uL (2.0-11.5); MONOCYTES # (AUTO) 0.8 K/uL (0.8-1.0); PLATELET COUNT (AUTO) 318 K/uL (140-450)
[2017-09-13 05:32] LABS: BASOPHILS % (AUTO) 1.1 % (0.0-2.0); HEMATOCRIT 34.8 % (36-52); LYMPHOCYTES % (AUTO) 10.6 % (20.5-51.1); MEAN CORPUSCULAR HEMOGLOBIN 33 pg (27-31); MEAN CORPUSCULAR HGB CONC 34 g/dL (33-37); MEAN CORPUSCULAR VOLUME 97 fL (80-94); MONOCYTES % (AUTO) 7.9 % (1.7-9.3); RED BLOOD CELL COUNT(AUTO) 3.58 MIL/uL (4.20-6.10); RED CELL DISTRIBUTION WIDTH 12.7 % (11.6-13.7)
[2017-09-13] MEDS: LEVOTHYROXINE PO SCH ×2 (05:32)
--- NOTE | 2017-09-13 06:46 | NUR ---
RECEIVED PT ON CARESCAPE ON PRVC RR 12 VT 500 I-TIME IS 0.80 PEEP 5 FIO2 45 ALARMS ARE 0N AND FUNCTIONAL BS RHONCI I\L SX HHN GIVEN I\L WITH 3 MG DUONEB PT IN HF ASLEEP NO APPARENT DISTRESS VENT PLUGGED INTO RED OUTLET
[2017-09-13 07:00] LABS: ANION GAP 9.7 (8-16); CARBON DIOXIDE 33.1 mmol/L (21-32); CREATININE 1.3 mg/dL (0.7-1.3); POTASSIUM 3.8 mmol/L (3.5-5.1)
[2017-09-13 07:05] LABS: MAGNESIUM 2.2 mg/dL (1.8-2.4); PHOSPHORUS 5.2 mg/dL (2.5-4.9)
--- NOTE | 2017-09-13 07:25 | NUR ---
SBAR GIVEN TO [facility] FOR CONTINUITY OF CARE.
--- NOTE | 2017-09-13 07:26 | NUR ---
RECEIVED PATIENT ON BED.INITIAL ASSESSMENT DONE TO PATIENT ETT SIZE 7.5 AT WITH VENT SETTING FOLLOWS:FIO2=45 PERCENT,XR=885,AC=12,PEEP=5..BULLARD TO GRAVITY.OGT WITH NUTREN PULMONARY AT 60 ML/H.NO RESIDUAL NOTED.RIGHT HAND 20 GAUGE AND RIGHT FOREARM 20 GAUGE .NO SIGNS OF INFILTRATION.NO SKIN BREAKDOWN.NSR ON THE MONITOR.PT COMUNICATES THRU MOUTHWORDS AND WRITING.NO CO PAIN.FENTANYL DRIP AT 25 MCG/H AND NS AT 5ML/H .WILL MONITOR.
[2017-09-13] MEDS ORDERED: NACL 0.9% 500 ML IV SCH (08:42)
--- NOTE | 2017-09-13 09:00 | NUR ---
DR SALDIVAR MADE AWARE THAT PT GTUBE TO GRAVITY AND WHEN GIVEN SOMETHING TO GTUBE GOES OUT RIGHT AWAY PER ASTRONOMY TEACHER.ORDERS RECEIVED. Addendum: 09/13/17 at 2047 by Camilla Cosby RN RN PLS DISREGARD ABOVE NOTES MEANT FOR A DIFFERENT PATIENT.
[2017-09-13] MEDS: PANTOPRAZOLE 40 MG INJ VIAL IVP SCH (09:24)
[2017-09-13] MEDS: QUEtiapine FUMARATE 100 MG TAB PO SCH ×2 (09:24→20:24)
[2017-09-13] MEDS: LACTOBACILLUS RHAMNOSUS GG 1 EACH CAP PO SCH (09:24)
[2017-09-13] MEDS: CALCIUM ACETATE 667 MG TAB PO SCH ×2 (09:25→18:06)
[2017-09-13] MEDS: CALCIUM CARB/VIT-D 500 MG/200 IU 1 TAB PO SCH ×2 (09:25→20:24)
[2017-09-13] MEDS: NACL 0.9% 1,000 ML IV SCH (11:57)
--- NOTE | 2017-09-13 12:26 | NUR ---
09/13/17 RD FOLLOW UP COMPLETED PLEASE REFER TO NUTRITION PROGRESS NOTE UNDER CARE ACTIVITY FOR ESTIMATED NUTRITION NEEDS. RD RECOMMENDATIONS: 1. CONSIDER INCREASE ENTERAL FEEDING TO NUTREN PULMONARY @ 65 ML/HR. THIS WILL PROVIDE 2340 KCAL, 106 GM PROTEIN, AND 1220 ML FREE WATER. THIS WILL MEET 100% ESTIMATED KCAL NEEDS AND 95% ESTIMATED PROTEIN NEEDS. 2. RD WILL F/U 2-3 DAYS; HIGH RISK. RODRIGUE GLEZ, , RDN
[2017-09-13] MEDS: LEVOFLOXACIN 750 MG/D5W PREMIX 150 ML IV SCH (15:51)
--- NOTE | 2017-09-13 18:50 | NUR ---
PT IS NOT IN ANY CARDIORESPIRATORY DISTRESS.
--- NOTE | 2017-09-13 19:18 | NUR ---
RECEIVED PT STABLE ON VENT SUPPORT AT DOCUMENTED SETTINGS, SUCTIONED SMALL AMOUNTS OF THIN WHITE SECRETIONS, HHN TX GIVEN, TOLERATED WELL, NO RESP DISTRESS OR SOB NOTED, 7.5 ETT SECURED AND PATENT AT 25 CM AT THE LIP, ALARMS SET AND AUDIBLE, AMBU BAG AT BEDSIDE, VENT PLUGGED INTO RED OUTLET, WILL CONT TO MONITOR.
--- NOTE | 2017-09-13 19:30 | NUR ---
RECEIVED A REPORT FROM MORNING NURSEARPIT RN. PT EYES OPEN WHEN NAME CALLED AND ABLE TO MAKE NEEDS KNOWN WITH FACIAL EXPRESSIONS AND GESTURES. ETT TO VENT AC 12M FIO2 40%, TV 500 AND PEEP 5. OGT IN PLACE AND GASTRIC RESIDUAL 5ML. BOWEL SOUNDS HEARD FROM ALL 4 QUADS. BULLARD CATH DRAINING CLEAR YELLOW URINE. LUNG SOUNDS CLEAR AND S1 AND S2 HEARD. IV SITE TO RIGHT HAND 20G AND R FOREARM 20G BOTH PATENT AND ASYMPTOMATIC. ON FENTANYL DRIP. SR ON MONITOR. DENIES PAIN OR DISCOMFORT. NO ACUTE DISTRESS NOTED. CALL LIGHT IN REACH. BED KEPT TO THE LOWEST. HOB ELEVATED TO 30 DEGREES. WILL CONTINUE TO MONITOR.
--- NOTE | 2017-09-13 20:30 | NUR ---
SCHEDULED MEDICATIONS ADMINISTERED ORDERED. PT TOLERATED WELL.
--- NOTE | 2017-09-13 23:00 | NUR ---
FETANYL DRIP ON HOLD AT THIS TIME DUE TO BP-80/47. DR. SCHWARTZ MADE AWARE. WILL CONTINUE TO MONITOR.
[2017-09-14] VITALS (30 sets, daily range): BP systolic 80–120; BP diastolic 42–78
[2017-09-14] MEDS ORDERED: LORazepam 2 MG/ML VIAL IVP PRN (00:10)
[2017-09-14] MEDS: NACL 0.9% 1,000 ML IV SCH ×2 (00:20→11:20)
[2017-09-14] MEDS: ALBUTEROL SULFATE/IPRATROPIU 3 ML SOL IH SCH ×4 (00:51→18:51)
--- NOTE | 2017-09-14 01:11 | NUR ---
PT AWAKES WITH NAME CALLED. FENTANYL DRIP CONTINUES TO BE ON HOLD DUE TO LOW BP. BP=84/51. MAP 67. DR. SCHWARTZ MADE AWARE. ORDER NOTED TO KEEP MAP ABOVE 60. PT DENIES PAIN OR DISCOMFORT AT THIS TIME. ORAL CARE PROVIDED. ALL SAFETY PRECAUTIONS IN PLACE.
--- NOTE | 2017-09-14 01:53 | NUR ---
PT NOTED BEING ANXIOUS AND POINTING THAT THE THROAT IS FEELING TIGHT. SATURATION 93%. LUNG SOUNDS CLEAR. EXPLAINED PT THAT THE PT IS INTUBATED AND THE TUBE IS GOING TO THE LUNGS TO DELIVER OXYGEN AND HELP HIM BREATH. PT CONTINUES TO BE ANXIOUS. DR. SCHWARTZ MADE AWARE AND ORDERED TO GIVE ATIVAN ORDERED. CARRIED OUT AND WILL CONTINUE TO MONITOR.
--- NOTE | 2017-09-14 03:38 | NUR ---
TUBE FEEDING CHANGED TO NEW BAG AT THIS TIME. RESIDUAL NOTED 5ML. TOLERATING FEEDING WELL. HOB KEPT ELEVATED TO 30 DEGREES. PT IS ASLEEP AT THIS TIME. MAP TO KEEP ABOVE 60. NO S/SX OF PAIN. NO ACUTE DISTRESS NOTED. WILL CONTINUE TO MONITOR.
--- NOTE | 2017-09-14 04:21 | NUR ---
PT NOTED VOMITING TUBE FEEDING CONTENT. PT NOTED MANEUVERING THE TUBE WITH HIS HANDS. TUBE NOT IN PLACE UPON PLACEMENT CHECK. DR. SCHWARTZ MADE AWARE AND NEW ORDER RECEIVED. OLD OGT REMOVED AND ATTEMPTED TO RE-INSERT BUT PT VOMITED AGAIN. LANA PENA MADE AWARE AND ORDERED TO RE-INSERT AFTER MEDICATIONS ARE ADMINISTERED ORDERED. WILL CARRY OUT.
[2017-09-14] MEDS: ONDANSETRON 4 MG/2 ML VIAL IM/IVP PRN (04:46)
[2017-09-14] MEDS: methylPREDNISolone SS 40 MG/ML VIAL IVP SCH ×3 (04:46→20:53)
[2017-09-14] MEDS ORDERED: LORazepam 2 MG/ML VIAL IVP SCH (05:00)
[2017-09-14] MEDS: SODIUM CHLORIDE FLUSH 10 ML SYR IVF SCH ×3 (05:07→20:53)
[2017-09-14] MEDS: PIPER/TAZO 3.375GM/D5W PREMIX 50 ML IV SCH ×4 (05:08→23:30)
--- NOTE | 2017-09-14 05:10 | NUR ---
OGT RE-INSERTED AND VERIFIED PLACEMENT. PT TOLERATED WELL. HOB KEPT ELEVATED. PT DENIES N/V AT THIS TIME.
--- NOTE | 2017-09-14 05:52 | NUR ---
DR. KINSEY AT BED SIDE. UPDATED PT'S CONDITION OVER NIGHT. WILL FOLLOW UP WITH ANY ORDERS.
--- NOTE | 2017-09-14 05:53 | NUR ---
DR. KINSEY MADE AWARE OF THE OGT RE-INSERTION AND ORDERED TO CONTINUE TO HOLD THE TUBE FEEDING UNTIL PLACEMENT IS VERIFIED BY CHEST XRAY. NOTED AND CARRIED OUT.
[2017-09-14 05:55] LABS: HEMATOCRIT 31.8 % (36-52); HEMOGLOBIN 10.7 g/dL (12.0-18.0); MEAN CORPUSCULAR HEMOGLOBIN 33 pg (27-31); MEAN CORPUSCULAR HGB CONC 34 g/dL (33-37); MEAN CORPUSCULAR VOLUME 97 fL (80-94); PLATELET COUNT (AUTO) 280 K/uL (140-450); RED BLOOD CELL COUNT(AUTO) 3.29 MIL/uL (4.20-6.10); RED CELL DISTRIBUTION WIDTH 12.4 % (11.6-13.7); WHITE BLOOD COUNT (AUTO) 9.5 K/uL (4.8-10.8)
[2017-09-14 06:17] LABS: CARBON DIOXIDE 31.2 mmol/L (21-32); CREATININE 1.2 mg/dL (0.7-1.3); POTASSIUM 4.2 mmol/L (3.5-5.1)
[2017-09-14 06:22] LABS: MAGNESIUM 2.4 mg/dL (1.8-2.4); PHOSPHORUS 4.4 mg/dL (2.5-4.9)
[2017-09-14] MEDS: LEVOTHYROXINE PO SCH ×2 (06:30)
--- NOTE | 2017-09-14 06:55 | NUR ---
SCHEDULED SYNTHROID NOT ADMINISTERED DUE TO OGT PLACEMENT NOT VERIFIED BY CHEST XRAY YET. DR. KINSEY MADE AWARE.
--- NOTE | 2017-09-14 07:01 | NUR ---
REC'D PT ON [employer] VENT SETTINGS PRVC 12 VT 500 PEEP 5 FIO2 60% ALARMS ON AND FUNCTIONING PROPERLY, AMBU BAG AT SIDE OF VENT AND VENT IS PLUGGED INTO RED OUTLET, I\L TX GIVEN WITH DUONEB 3ML WITH NO ADVERSE REACTION POST TX B\S ARE RHONCHI BILATERALLY, SXN PT SMALL AMT OF WHITE SECRETIONS,PT IS ORALLY INTUBATED WITH 7.5 ET TUBE SECURED WITH ANCHOR FAST AT 25 CM AT MIDLINE, SKIN INTEGRITY IS INTACT
--- NOTE | 2017-09-14 07:18 | NUR ---
ONCOLOGY PHYSICIAN AT BED SIDE PERFORMING CHEST XRAY.
--- NOTE | 2017-09-14 07:20 | NUR ---
RECEIVED REPORT AT BEDSIDE FROM PM SHIFT RN. PT SLEEPING. ETT TO VENT SIZE 7.5 AT 25 CM AT LIPLINE. VENT SETTING: AC MODE RR: 12 TIDAL VOLUME: 500 FiO2: 60% PEEP: 5. FLACC= 0 , V/S STABLE. AFEBRILE. SR ON MONITOR.CLEAR LUNGS SOUNDS UPON AUSCULTATION. RT FA #20G AND RT HAND #20G IV ACCESS INTACT AND PATENT W/ IVF INFUSING. OGT TUBE FEEDING HELD, AWAITED X RAY RESULT. ABDOMEN SOFT, NON DISTENDED. INTACT SKIN. SCD APPLIED TO BOTH LEGS FOR DVT PROPHYLAXIS. BULLARD CATH IN PLACE WITH DARM ELOINA DRAINAGE BY GRAVITY. BED IN LOW POSITION. CALL LIGHT WITHIN REACH. WILL CONTINUE TO MONITOR.
--- NOTE | 2017-09-14 07:20 | NUR ---
REPORT GIVEN TO MORNING NURSE, GEETA RN FOR CONTINUITY OF CARE. VS WITHOUT ACUTE DISTRESS. ALL SAFETY PRECAUTIONS ARE IN PLACE.
[2017-09-14 08:00] LABS: BASOPHILS % (MANUAL) 1 % (0-2); EOSINOPHILS % (MANUAL) 0 % (0-4); LYMPHOCYTES % (MANUAL) 12 % (20-46); MONOCYTES % (MANUAL) 7 % (5-12)
[2017-09-14] MEDS: PANTOPRAZOLE 40 MG INJ VIAL IVP SCH (08:18)
[2017-09-14] MEDS ORDERED: LEVOTHYROXINE 0.1 MG TAB NG SCH (08:40)
--- NOTE | 2017-09-14 09:20 | NUR ---
VENT CHECK, NO SXN REQUIRED AT THIS TIME, AIRWAY IS PATENT AND PT IS SLEEPING
--- NOTE | 2017-09-14 10:00 | NUR ---
REPOSITIONED AND ASSESSED PATIENT. PATIENT VITALS STABLE AT THE MOMENT.
--- NOTE | 2017-09-14 10:00 | NUR ---
OG TUBE FEEDING CONTINUE TO BE HELD TILL X-RAY RESULT VERIFIED BY MD. POSTPONE GIVING AM OGT MEDS. REPOSITION PT. 2ND X-RAY DONE AT THE BEDSIDE FOR VERIFICATION OF OG TUBE PLACEMENT.
[2017-09-14] MEDS: CALCIUM ACETATE 667 MG TAB PO SCH ×2 (10:21→17:36)
[2017-09-14] MEDS: LACTOBACILLUS RHAMNOSUS GG 1 EACH CAP PO SCH (10:21)
[2017-09-14] MEDS: QUEtiapine FUMARATE 100 MG TAB PO SCH ×2 (10:22→20:53)
--- NOTE | 2017-09-14 10:22 | NUR ---
OG TUBE PLACEMENT CONFIRMED BY XRAY. GIVEN AM PO MEDS.
[2017-09-14] MEDS: CALCIUM CARB/VIT-D 500 MG/200 IU 1 TAB PO SCH ×2 (10:23→20:53)
--- NOTE | 2017-09-14 11:20 | NUR ---
VENT CHECK, NO SXN REQUIRED AIRWAY IS AND PT IS RESTING
--- NOTE | 2017-09-14 12:00 | NUR ---
VAP ORAL CARE PROVIDED. REPOSITION PT. PT VITALS STABLE AND TOLERATES WELL.
--- NOTE | 2017-09-14 12:53 | NUR ---
VENT CHECK, I\L TX GIVEN WITH DUONEB 3ML WITH NO ADVERSE REACTION POST B\S ARE PRADIP SNX PT SMALL AMT OF WHITE SECRETIONS, PT IS RESTING Addendum: 09/14/17 at 1306 by Kylie Coulter RT DECREASED FIO2 TO 50% AND DULCE CONNOR NOTIFJIN
--- NOTE | 2017-09-14 13:11 | NUR ---
INCREASED FIO2 BACK TO 60% DUE 60 LOW O2 SAT OF 89% RN GEETA NOTIFIED
[2017-09-14] MEDS: LEVOFLOXACIN 750 MG/D5W PREMIX 150 ML IV SCH (14:37)
--- NOTE | 2017-09-14 14:55 | NUR ---
DAUGHTER PRESENTED AT BEDSIDE. DISCUSSED W/DAUGHTER WITH PT'S PLAN OF CARE AND SHE VERBALIZED UNDERSTANDING.
--- NOTE | 2017-09-14 15:30 | NUR ---
VENT CHECK, NO SXN REQUIRED AT THIS TIME, AIRWAY IS PATENT FAMILY AT BEDSIDE
--- NOTE | 2017-09-14 16:00 | NUR ---
VAP ORAL CARE PROVIDED. PT VITALS STABLE. REPOSITIONED PT.
--- NOTE | 2017-09-14 16:46 | NUR ---
OGT FEEDING RESUMED ORDERED. HOB ELEVATED TO 30 DEGREES. WILL CONTINUE TO MONITOR.
--- NOTE | 2017-09-14 17:25 | NUR ---
changed vent settings to cpap 5 ps 8 fio2 to 50% ordered abg at 1735 vent check done airway is patent and pt is resting
--- NOTE | 2017-09-14 17:47 | NUR ---
G DRAWN ON RR WITHOUT INCIDENT AND DR. KAUR WAS CALLED
--- NOTE | 2017-09-14 18:00 | NUR ---
REPOSITIONED PT. PT VITALS STABLE AT THIS TIME.
--- NOTE | 2017-09-14 18:35 | NUR ---
PT EXTUBATED AT 1835. PT IS NOW ON OXIMIZER 5L/MIN. PT TOLERATES WELL.
--- NOTE | 2017-09-14 19:00 | NUR ---
1835 EXTUBATED PATIENT AND PLACED ON 5L OXYMIZER. PT GIVEN HHNTX. NO SOB NOTED. SATS ON 5L 97%
--- NOTE | 2017-09-14 19:20 | NUR ---
REPORT RECEIVED FROM GEETA RN FROM MORNING SHIFT. PT IS A&OX4. PERRL. VERBAL. CURRENTLY EXTUBATED AND ON OXYMIZER @5L/MIN. BILATERAL LUNGS SOUND DIMINISHED. OGT IN AND MARKED BUT FEEDING CURRENTLY ON HOLD. S1 AND S2 HEARD. RIGHT FOREARM AND RIGHT HAND SALINE LOCK IV BOTH 20 G ALL PATENT AND ASYMPTOMATIC. NO EDEMA. PT NEEDS MINIMAL TO MAXIMUM ASSISTANCE TO TURN AND REPOSITION. SCD ON BILATERAL LOWER LEGS. BULLARD CATH DRAINING CLEAR LIGHT ELOINA URINE. DENIES PAIN OR DISCOMFORT. ON CONTINUOUS PRODUCTION WELDER. VS WITHOUT ACUTE DISTRESS. CALL LIGHT IN REACH. BED ELEVATED TO 30 DEGREES AND KEPT TO THE LOWEST POSITION. WILL CONTINUE TO MONITOR.
--- NOTE | 2017-09-14 19:30 | NUR ---
PT WAS EXTUBATED TODAY AND FEEDING AND IVF ARE ON HOLD. CALLED DR. SCHWARTZ ABOUT THE FEEDING AND IVF. DR. SCHWARTZ ORDERED TO CONTINUE TO HOLD THE FEEDING BUT OK TO GIVE MEDS VIA OGT AND IVF BUT START IVF IF BECOMES HYPOTENSIVE. PT MADE AWARE.
--- NOTE | 2017-09-14 19:30 | NUR ---
REPORT GIVEN TO PM SHIFT RN FOR CONTINUITY OF CARE.
--- NOTE | 2017-09-14 21:27 | NUR ---
OGT PLACEMENT CHECKED AND IN PLACE. SCHEDULED MEDS ADMINISTERED ORDERED EXCEPT HEPARIN SQ DUE TO PT REFUSED X3. BENEFITS AND RISKS EXPLAINED. DR. SCHWARTZ MADE AWARE.
--- NOTE | 2017-09-14 23:34 | NUR ---
IV ABX ADMINISTERED ORDERED. BOTH IV LINES TO RIGHT FOREARM AND RIGHT HAND ASYMPTOMATIC AND PATENT. PT DENIES PAIN OR DISCOMFORT. VS WITHOUT ACUTE DISTRESS. AAL SAFETY PRECAUTIONS ARE IN PLACE.
[2017-09-15] VITALS (12 sets, daily range): BP systolic 86–121; BP diastolic 42–84
[2017-09-15] MEDS: ALBUTEROL SULFATE/IPRATROPIU 3 ML SOL IH SCH ×4 (01:10→19:30)
--- NOTE | 2017-09-15 01:41 | NUR ---
NEW ORDER FOR INCENTIVE SPIROMETER RECEIVED. INSTRUCTED PT ON HOW TO USE IT WITH RT. PT PROVIDED RETURN DEMO. WILL ENCOURAGE PT TO CONTINUE TO USE IT.
--- NOTE | 2017-09-15 01:49 | NUR ---
0142 INSTRUCTED I.S TO PATIENT. PT DID 1000CC X 10 BREATHS. PT ENCOURAGED TO CONTINUE USE OF I.S
--- NOTE | 2017-09-15 02:51 | NUR ---
PT ASLEEP AT THIS TIME. NO S/SX OF PAIN OR DISCOMFORT. O2 SAT 94% WITH 5L/MIN VIA OXYMIZER. WILL CONTINUE TO MONITOR.
[2017-09-15] MEDS: methylPREDNISolone SS 40 MG/ML VIAL IVP SCH ×3 (05:10→20:11)
[2017-09-15] MEDS: SODIUM CHLORIDE FLUSH 10 ML SYR IVF SCH ×3 (05:10→21:00)
[2017-09-15] MEDS: PIPER/TAZO 3.375GM/D5W PREMIX 50 ML IV SCH ×4 (05:10→23:03)
--- NOTE | 2017-09-15 05:11 | NUR ---
SCHEDULED MEDS WERE ADMINISTERED. TOLERATED WELL. DENIES PAIN OR DISCOMFORT. VS WITHOUT ACUTE DISTRESS. O2 SAT 94% WITH O2 @5L/MIN VIA OXYMIZER. WILL CONTINUE TO MONITOR.
[2017-09-15 05:12] LABS: HEMOGLOBIN 12.1 g/dL (12.0-18.0); MEAN CORPUSCULAR HEMOGLOBIN 33 pg (27-31); MEAN CORPUSCULAR HGB CONC 35 g/dL (33-37); MEAN CORPUSCULAR VOLUME 96 fL (80-94); PLATELET COUNT (AUTO) 285 K/uL (140-450); RED BLOOD CELL COUNT(AUTO) 3.63 MIL/uL (4.20-6.10); RED CELL DISTRIBUTION WIDTH 12.7 % (11.6-13.7); WHITE BLOOD COUNT (AUTO) 16.2 K/uL (4.8-10.8)
--- NOTE | 2017-09-15 05:50 | NUR ---
DR. KINSEY IN TO SEE PT. WILL FOLLOW UP WITH ANY ORDERS.
[2017-09-15 06:27] LABS: LYMPHOCYTES % (MANUAL) 7 % (20-46); MONOCYTES % (MANUAL) 2 % (5-12)
[2017-09-15] MEDS: LEVOTHYROXINE 0.1 MG TAB NG SCH (06:34)
[2017-09-15 06:35] LABS: ANION GAP 13.2 (8-16); CARBON DIOXIDE 29.1 mmol/L (21-32); CREATININE 1.3 mg/dL (0.7-1.3); POTASSIUM 4.3 mmol/L (3.5-5.1)
[2017-09-15 06:40] LABS: MAGNESIUM 2.4 mg/dL (1.8-2.4); PHOSPHORUS 4.5 mg/dL (2.5-4.9)
--- NOTE | 2017-09-15 07:20 | NUR ---
REPORT GIVEN TO MORNING NURSE, DULCE AYERS FOR CONTINUITY OF CARE. VS WITHOUT ACUTE DISTRESS. ALL SAFETY PRECAUTIONS IN PLACE.
--- NOTE | 2017-09-15 07:59 | NUR ---
RECEIVED PT IN BED. ASLEEP. AROUSABLE TO VOICE. ALERT ORIENTEDX4. NO SOB NOTED. MAINTAINED ON OXYMIZER AT 5LPM. DENIES ANY PAIN OR DISCOMFORT AT THIS TIME. NO SIGNS AND SYMPTOMS OF CAUTE PAIN OR DISCOMFORT NOTED. PT ON BEDREST. OFFLOAD BONY PROMINENCE. BULLARD CATHETER IN PLACE DRAINING CLEAR YELLOW URINE. SAFETY PRECAUTION IN PLACE.
--- NOTE | 2017-09-15 08:30 | NUR ---
PHYSICAL THERAPIST CAME TO SEE PT. ASSISTED PT WITH AMBULATION WITH WALKER, PT WAS ASSISTED TO SIT DOWN AT SIDE OF BED. 02 SATURATION GOING DOWN TO 88%. NO ACUTE DISTRESS NOTED. DENIES ANY PAIN OR DISCOMFORT AT THIS TIME. 02 SATURATION WENT BACK UP TO 92% WHEN REPOSITIONED BACK IN BED. MAINTAINED ON OXIMIZER AT 5LPM.
[2017-09-15] MEDS: CALCIUM ACETATE 667 MG TAB PO SCH ×2 (08:53→16:46)
[2017-09-15] MEDS: QUEtiapine FUMARATE 100 MG TAB PO SCH ×2 (08:53→20:11)
[2017-09-15] MEDS: PANTOPRAZOLE 40 MG INJ VIAL IVP SCH (08:54)
[2017-09-15] MEDS: CALCIUM CARB/VIT-D 500 MG/200 IU 1 TAB PO SCH ×2 (08:54→20:11)
[2017-09-15] MEDS: LACTOBACILLUS RHAMNOSUS GG 1 EACH CAP PO SCH (08:54)
--- NOTE | 2017-09-15 09:00 | NUR ---
CHECKED PATENCY OF OGT. ASPIRATED 3 MLS OF GASTRIC RESIDUAL. POSITIVE GURGLING SOUND NOTED UPON ASCULTATION. FLUSHED WITH WATER. DUE MEDS WAS GIVEN TOLERATED WELL. NO COUGHING, NO DISTRESS NOTED AT THIS TIME.
--- NOTE | 2017-09-15 09:31 | NUR ---
DR. KAUR CAME TO SEE PT AND DR. KAUR REMOVED OGT. PT TOLERATED WELL. MOUTH SECRETIONS SUCTIONED, GOOD ORAL CARE PROVIDED. AWAITING ST BRIANAL.
--- NOTE | 2017-09-15 11:24 | NUR ---
PT VERBALIZED HE IS HUNGRY. CALLED ST [facility] AT [phone]. LEFT A MESSAGE TO FOLLOW UP WITH ST ANI MUNGUIA. AWAITING CALL BACK.
--- NOTE | 2017-09-15 12:52 | NUR ---
SALES DEVELOPMENT ASSOCIATE note (order for bedside swallow evaluation received) 12:50. Order for bedside swallow evaluation received, chart reviewed. Pt was intubated 09/04/2017 and extubated 09/14/2017 at 18:35. As pt's risk for silent aspiration is the greatest during the first 24 hours following extubation, bedside swallow evaluation will be held until after 24 hours s/p extubation have elapsed to reduce pt's risk for silent aspiration. Recommend: 1) strict NPO (frequent oral cares only) until completion of bedside swallow evaluation 2) consider alternative method(s) of nutrition/hydration/medication, as appropriate in the interim 3) SALES DEVELOPMENT ASSOCIATE will f/u to complete bedside swallow evaluation after 24 hours s/p extubation have elapsed, as pt willing/able to participate safely. PVE for chart review and documentation of rationale for deferral of bedside swallow evaluation.
--- NOTE | 2017-09-15 13:20 | NUR ---
RECEIVED A CALL FROM [facility] REGARDING SWALLOW EVAL THAT PT IS AT RISK FOR SILENT ASPIRATION AND NEED TO WAIT 24 HOUR AFTER EXTUBATION BEFORE DOING THE SWALLOW EVAL. CLARIFIED WITH [facility] IF THEY WILL COME AFTER 183 TODAY, SINCE THAT LUI THE 24 HOURS AFTER THE PT WAS EXTUBATED YESTERDAY. PER DONTE THEY CAN'T COME TONIGHT AND WILL DO SWALLOW EVAL TOMORROW MORNING. DR. KINSEY MADE AWARE SINCE PT IS ALREADY BECOMING MORE AND MORE UPSET, BECAUSE HE IS HUNGRY. PER DR. KINSEY ITS OK TO DO SWALLOW EVAL AT BEDSIDE BY NURSE, AND OK NOT TO WAIT 24 HOURS AFTER EXTUBATION. WILL TRY TO FEED PT, WITH ASPIRATION PRECAUTION IN PLACE.
--- NOTE | 2017-09-15 13:47 | NUR ---
TRIED FEEDING PT APPLE SAUCE LESS THAN HALF SPOON PER FEEDING. ALTERNATING IT WITH THICKENED APPLE JUICE. TOLERATED WELL NO SIGNS OF ACUTE DISTRESS NOTED. NO SOB NOTED, NO COUGHING NOTED AT THIS TIME. TRIED SMALL SCOOP OF JELLO, PT COUGHED A LITTLE BIT. STOPPED FEEDING THE JELLO. ASSESSED PT FOR ASPIRATION AND SOB. PT VERBALIZED HE IS OK. PT OFFERED PLAIN WATER, AND TOLERATED WELL. WILL LET THE DOCTOR KNOW, THAT PT TOLERATED HIS FEEDING AT THIS TIME.
--- NOTE | 2017-09-15 14:30 | NUR ---
DR. KINSEY MADE AWARE THAT PT WAS ABLE TO TOLERATE INITIAL ORAL FEEDING. PER DR. KINSEY SHE WILL PUT AN ORDER FOR PUREE DIET.
[2017-09-15] MEDS: LEVOFLOXACIN 750 MG/D5W PREMIX 150 ML IV SCH (15:25)
--- NOTE | 2017-09-15 16:00 | NUR ---
DR. MACE (PSYCH) CAME TO SEE PT. WITH ORDERS MADE AND CARRIED OUT.
--- NOTE | 2017-09-15 18:12 | NUR ---
PT TOLERATED HIS PUREE DIET DINNER CONSUMED 75%. NO SOB NOTED.
--- NOTE | 2017-09-15 18:57 | NUR ---
DR. SCHWARTZ CAME TO SEE PT AND WILL PUT AN ORDER TO DC BULLARD CATHETER.
--- NOTE | 2017-09-15 19:23 | NUR ---
CLARIFIED WITH DR. SCHWARTZ REGARDING IV FLUID ORDER. MD AWARE THAT PT IS RECEIVING NS AT 50MLS/HR ORDERED. PER DR. SCHWARTZ SHE WILL DISCONTINUE THE IVF ORDER SINCE THE PT IS EATING AND DRINKING WELL, ON PUREE DIET NOW.
--- NOTE | 2017-09-15 19:26 | NUR ---
PT KEPT CLEAN, DRY AND COMFORTABLE, NEEDS ATTENDED. NO SOB NOTED. MAINTAINED ON OXIMIZER AT 5LPM. DENIES ANY PAIN OR DISCOMFORT AT THIS TIME. ENDORSED TO ICU NURSE SAROJ. PT ON STABLE CONDITION. FOR CONTINUITY OF CARE.
--- NOTE | 2017-09-15 19:30 | NUR ---
RECEIVED A REPORT FROM MORNING NURSE, DULCE TRUJILLO. PT IS A&O X4 BUT MADE COMMENTS SUCH "I'LL GO TO [facility] FOR INCUR[facility]LES WITH MY SLAVA AND [employer] WILL PAY FOR IT" HE STATED AND HE IS TIRED AND WANTS TO GO TO SLEEP. PERRL. BILATERAL LUNG SOUNDS DIMINISHED FROM THE LOWER LOBES BUT CLEAR UPPER LOBES. S1 AND S2 HEARD WITHOUT ABNORMAL HEART SOUND. ON O2 @ 6L/MIN VIA OXYMIZER SATING 94%. BOWEL SOUNDS HEARD FROM ALL QUADS. BULLARD CATHETER WAS D/C'D PER MORNING NURSE AND PT USED URINAL TO GIVE 5ML OUTPUT. ENCOURAGED PT TO VOID IN THE URINAL BUT UNABLE AT THIS TIME. DENIES ANY PAIN OR DISCOMFORT. SCD TO BILATERAL LOWER EXTREMITIES. RIGHT FOREARM AND RIGHT HAND SALINE LOCK ALL 20G AND PATENT AND ASYMPTOMATIC. SR ON CONTINUOUS MONITORING. CALL LIGHT IN REACH AND BED HOB ELEVATED TO 30 DEGREES AND KEPT TO THE LOWEST POSITION. WILL CONTINUE TO MONITOR.
--- NOTE | 2017-09-15 20:17 | NUR ---
ALL SCHEDULED MEDS ADMINISTERED. TOLERATED WELL. DENIES PAIN OR DISCOMFORT.
--- NOTE | 2017-09-15 22:09 | NUR ---
PT VOIDED 200ML CLEAR YELLOW URINE USING URINAL. ENCOURAGED PT TO USE INCENTIVE SPIROMETER. PT USED IT HAVING 10 DEEP BREATHS.
--- NOTE | 2017-09-15 23:04 | NUR ---
IV ZOSYN BEING ADMINISTERED. BOTH RIGHT FOREARM AND RIGHT HAND IV LINES ARE PATENT AND ASYMPTOMATIC. PT DENIES PAIN OR DISCOMFORT. ENCOURAGED PT TO DO INCENTIVE SPIROMETER. PT WITH NO ACUTE DISTRESS AT THIS TIME. WILL CONTINUE TO MONITOR.
[2017-09-16] VITALS (7 sets, daily range): BP systolic 93–121; BP diastolic 44–78
[2017-09-16] MEDS: ALBUTEROL SULFATE/IPRATROPIU 3 ML SOL IH SCH ×4 (00:51→19:48)
--- NOTE | 2017-09-16 02:17 | NUR ---
PT ASLEEP. VS WITHOUT ACUTE DISTRESS. WILL CONTINUE TO MONITOR.
--- NOTE | 2017-09-16 03:40 | NUR ---
PT URINATED 200ML CLEAR YELLOW URINE USING URINAL. PT MADE AWARE OF TRANSFER TO TELEMETRY.
--- NOTE | 2017-09-16 04:00 | NUR ---
PERSONAL BELONGING CHECKED WITH THE PT TO TAKE TO TELEMETRY. PT IS CONNECTED TO PORTABLE LAYER OFF AND PORTABLE O2 IN ANTICIPATION OF TRANSFER.
--- NOTE | 2017-09-16 04:25 | NUR ---
PT BROUGHT TO UNIT VIA GURNEY, PT AMBULATED WITH ASSIST FROM GURNEY TO BED. RECEIVED REPORT AT BEDSIDE FROM ICU NURSE. PT A/OX4, ON 6L O2 VIA OXYMIZER. PT IS ON BEDREST. PT HAS IV TO RIGHT HAND AND AC BOTH 20G, SL. PT SKIN IS INTACT. SAFETY PRECAUTIONS IN PLACE. UPDATED BOARD. VITAL SIGNS WITHIN NORMAL LIMITS. PT IN STABLE CONDITION, NO SIGNS OF DISTRESS NOTED. BED IN LOW POSITION, CALL LIGHT WITHIN REACH. WILL CONTINUE TO MONITOR.
--- NOTE | 2017-09-16 04:30 | NUR ---
PT TRANSFERRED TO TELEMETRY ROOM 123A WITH STABLE CONDITION. ALL BELONGINGS TAKEN WITH PT. REPORT GIVEN TO DULCE HUNTER AT TELEMETRY AT BED SIDE.
[2017-09-16] MEDS: SODIUM CHLORIDE FLUSH 10 ML SYR IVF SCH ×3 (05:58→20:51)
[2017-09-16] MEDS: PIPER/TAZO 3.375GM/D5W PREMIX 50 ML IV SCH ×3 (05:58→19:47)
[2017-09-16] MEDS: methylPREDNISolone SS 40 MG/ML VIAL IVP SCH (05:58)
[2017-09-16] MEDS: LEVOTHYROXINE 0.1 MG TAB NG SCH (06:16)
--- NOTE | 2017-09-16 06:55 | NUR ---
DECREASE OXYMIZER TO 5 L POST HHN SPO2 97
--- NOTE | 2017-09-16 07:20 | NUR ---
RECEIVED REPORT FROM NIGHTSHIFT NURSE AT BEDSIDE. PATIENT IS ASLEEP BUT AROUSABLE. PATIENT A&OX4. PATIENT ON 6L OXIMIZER AT THIS TIME. PATIENT SHOWS NO SIGNS OF RESPIRATORY DISTRESS OR DEPRESSION. UPDATED BOARDS AND ENCOURAGED PATIENT TO USE THE CALL LIGHT FOR ASSISTANCE. INSTRUCTED PATIENT TO USE URINAL AND CALL IF HE NEEDS HELP TO MOVE HIS BOWELS. PATIENT UNDERSTOOD INSTRUCTIONS. WILL CONTINUE TO MONITOR PATIENT
--- NOTE | 2017-09-16 07:27 | NUR ---
ENDORSED PT IN STABLE CONDITION TO DAY SHIFT RN FOR CONTINUITY OF CARE.
[2017-09-16] MEDS ORDERED: CALCIUM ACETATE 667 MG TAB ONE ×2 (09:18→17:10)
[2017-09-16] MEDS ORDERED: CALCIUM CARB/VIT-D 500 MG/200 IU 1 TAB ONE ×2 (09:19→20:36)
[2017-09-16] MEDS ORDERED: PANTOPRAZOLE 40 MG INJ VIAL IVP ONE (09:19)
[2017-09-16] MEDS ORDERED: LACTOBACILLUS RHAMNOSUS GG 1 EACH CAP ONE (09:20)
[2017-09-16] MEDS ORDERED: QUEtiapine FUMARATE 100 MG TAB ONE ×2 (09:21→20:37)
[2017-09-16] MEDS: PANTOPRAZOLE 40 MG INJ VIAL IVP SCH (09:24)
[2017-09-16] MEDS: LACTOBACILLUS RHAMNOSUS GG 1 EACH CAP PO SCH (09:25)
[2017-09-16] MEDS: QUEtiapine FUMARATE 100 MG TAB PO SCH ×2 (09:25→20:52)
[2017-09-16] MEDS: CALCIUM ACETATE 667 MG TAB PO SCH ×2 (09:25→17:16)
[2017-09-16] MEDS: CALCIUM CARB/VIT-D 500 MG/200 IU 1 TAB PO SCH ×2 (09:25→20:52)
[2017-09-16] MEDS ORDERED: PIPER/TAZO 3.375GM/D5W PREMIX 50 ML IV SCH (12:00)
[2017-09-16 12:05] LABS: BASOPHILS # (AUTO) 0.1 K/uL (0.00-0.22); BASOPHILS % (AUTO) 0.5 % (0.0-2.0); EOSINOPHILS # (AUTO) 0.1 K/uL (0-0.4); EOSINOPHILS % (AUTO) 0.5 % (0.0-4.0); HEMATOCRIT 36.5 % (36-52); HEMOGLOBIN 12.1 g/dL (12.0-18.0); LYMPHOCYTES # (AUTO) 0.9 K/uL (2.0-11.5); LYMPHOCYTES % (AUTO) 7.9 % (20.5-51.1); MEAN CORPUSCULAR HEMOGLOBIN 32 pg (27-31); MEAN CORPUSCULAR HGB CONC 33 g/dL (33-37); MEAN CORPUSCULAR VOLUME 97 fL (80-94); MONOCYTES # (AUTO) 0.7 K/uL (0.8-1.0); MONOCYTES % (AUTO) 5.9 % (1.7-9.3); NEUTROPHILS # (AUTO) 10.2 K/uL (1.8-7.7); NEUTROPHILS % (AUTO) 85.2 % (42.2-75.2); PLATELET COUNT (AUTO) 301 K/uL (140-450); RED BLOOD CELL COUNT(AUTO) 3.75 MIL/uL (4.20-6.10); RED CELL DISTRIBUTION WIDTH 13.1 % (11.6-13.7)
--- NOTE | 2017-09-16 13:11 | NUR ---
DECREASED OXYMIZER TO 3L SPO2 97
[2017-09-16 13:17] LABS: MAGNESIUM 2.2 mg/dL (1.8-2.4); PHOSPHORUS 3.3 mg/dL (2.5-4.9)
[2017-09-16 13:41] LABS: ANION GAP 15.8 (8-16); CARBON DIOXIDE 28.1 mmol/L (21-32); CREATININE 1.4 mg/dL (0.7-1.3); POTASSIUM 3.9 mmol/L (3.5-5.1)
[2017-09-16] MEDS ORDERED: LEVOFLOXACIN 750 MG/D5W PREMIX 150 ML IV ONE (15:25)
[2017-09-16] MEDS: LEVOFLOXACIN 750 MG/D5W PREMIX 150 ML IV SCH (15:39)
--- NOTE | 2017-09-16 16:37 | NUR ---
09/16/17 RD FOLLOW UP COMPLETED. PLEASE REFER TO NUTRITION PROGRESS NOTE UNDER CARE ACTIVITY FOR ESTIMATED NUTRITION NEEDS. 1.CONTINUE WITH PUREED DIET 2.ADVANCE DIET TEXTURES PT ABLE TO TOLERATE RD TO FOLLOW-UP 2-3.DAYS, HIGH. RISK LA NENA WATTS, RD
--- NOTE | 2017-09-16 17:35 | NUR ---
* ST NOTE * Pt seen at bedside w/nsg present. Pt alert and moderately cooperative, reporting no c/o pain but stating he is cold. WASH DRILLER HELPER made aware. Bedside dysphagia and oral mechanism exams completed. See evaluation report for further details. Pt tolerating 6/6 alternating PO trials of regular solid saltine crackers as well as 4/4 alternating PO trials of thin liquid orange juice and water both via a straw, all w/o s/s of aspiration. Pt exhibiting minimal residue in oral cavity after PO intake of regular solids. Pt requesting for cheese with the saltine crackers, w/clinician informing nsg of pt's request to be brought w/pt's dinner tray. Pt and caregivers/nsg education completed regarding aspiration precautions and safe swallow compensatory strategies pt and caregivers/nsg could utilize during pt's PO intake to aid pt w/swallow function, w/pt and caregivers/nsg verbalizing understanding and agreement. Because pt exhibiting minimal residue in oral cavity after PO intake of regular solids w/thin liquids, it is recommended pt's PO diet consistency be modified to mechanical soft textures w/thin liquids w/aspiration precautions in place during pt's PO intake and PO medication administration 2/2 to pt s/p extubation and hx of TBI or psych. No further ST follow up recommended at this time. Pt and caregivers/nsg education completed regarding results of evaluation; benefits of abiding by aspiration precautions and recommended PO diet consistency; and prognosis for improvement; with pt and caregivers/nsg verbalizing understanding and agreement w/clinician's recommendations. Recommend: - PO diet consistency of MECHANICAL SOFT TEXTURES W/THIN LIQUIDS For all meals - Maintain STRICT ASPIRATION PRECAUTIONS 2/2 to pt s/p extubation & hx of TBI/intermittent confusion - Sit pt up at 70-90 degree angle during PO intake and assure pt feeds self slowly, alternating btwn solids & liquids and utilizes small bites/sips - Complete oral care/oral hygiene program after meals to avoid aspiration/choking on any pocketed foods/residue No further ST follow up recommended at this time. G8996 CJ G8997 CI G8998 CI NOMS Level 2 Time In/Out 17:00 - 17:30
[2017-09-16] MEDS ORDERED: PIPERACILLIN/TAZOBACTAM 3.375 GM VIAL IV ONE (19:13)
--- NOTE | 2017-09-16 19:30 | NUR ---
REPORT GIVEN TO HEALTH INFORMATION CLERK NURSE, PT IN STABLE CONDITION.
--- NOTE | 2017-09-16 19:31 | NUR ---
RECEIVED REPORT AT BEDSIDE FROM DAY SHIFT NURSE. PT A/OX3, ON 2L O2 VIA OXYMIZER. PT IS ON BEDREST. PT HAS IV TO RIGHT HAND AND AC BOTH 20G, SL. PT SKIN IS INTACT. SAFETY PRECAUTIONS IN PLACE. UPDATED BOARD. VITAL SIGNS WITHIN NORMAL LIMITS. PT IN STABLE CONDITION, NO SIGNS OF DISTRESS NOTED. BED IN LOW POSITION, CALL LIGHT WITHIN REACH. WILL CONTINUE TO MONITOR.
--- NOTE | 2017-09-16 21:00 | NUR ---
ADMINISTERED SCHEDULED MEDICATIONS PER ORDER, PT TOLERATED WELL. PT IN STABLE CONDITION, NO SIGNS OF DISTRESS NOTED. BED IN LOW POSITION, CALL LIGHT WITHIN REACH. WILL CONTINUE TO MONITOR.
[2017-09-17] VITALS: BP 103/61
--- NOTE | 2017-09-17 00:10 | NUR ---
PT IRRITATED AT THIS TIME BECAUSE HE SAYS NO ONE HAS CHECKED ON HIM, EXPLAINED TO PT WE HAVE BEEN CHECKING ON HIM BECAUSE HE "WAS HAVING A NIGHTMARE AND I WAS ALL WET FROM THE SWEAT AND NOBODY, NONE OF YOU, WERE HERE." EXPLAINED TO PT WE HAVE BEEN CHECKING HIM OFTEN BUT SINCE HE WAS ASLEEP HE MIGHT HAVE NOT SEEN OR REMEMBERED. PT THEN STARTED SAYING "ARE YOU MESSING WITH ME? BECAUSE IF YOU ARE I HAVE A SLAVA BACK IN [place] WHO'S A FEDERAL OFFICER AND YOU DON'T MESS WITH US, NOBODY MESSES WITH US." EXPLAINED TO PT NOBODY WAS "MESSING" WITH HIM, HE WAS BEING CONSTANTLY CHECKED WHILE ASLEEP AND TOLD HIM TO CHECK THE BOARD WITH THE CHECK LUI FROM EVERY HOUR. PT THEN CALMED DOWN, AND REORIENTED PT TO TIME AND PLACE.
[2017-09-17] MEDS: ALBUTEROL SULFATE/IPRATROPIU 3 ML SOL IH SCH ×4 (00:31→18:47)
--- NOTE | 2017-09-17 00:31 | NUR ---
HE WANTS TO SLEEP, REFUSED HHNTX, NO SOB
[2017-09-17] MEDS: PIPER/TAZO 3.375GM/D5W PREMIX 50 ML IV SCH ×5 (00:54→23:55)
[2017-09-17 04:24] VITALS: BP 99/60
--- NOTE | 2017-09-17 04:29 | NUR ---
CONFUSED, THROW URINAL IN HALLWAY. VITAL SIGNS STABLE. NO COMPLAINS. CALL LIGHT WITHIN REACH.
[2017-09-17] MEDS: SODIUM CHLORIDE FLUSH 10 ML SYR IVF SCH ×3 (05:27→21:46)
[2017-09-17] MEDS ORDERED: LEVOTHYROXINE 0.05 MG TAB ONE (05:53)
[2017-09-17] MEDS: LEVOTHYROXINE 0.05 MG TAB NG SCH (06:01)
[2017-09-17] MEDS ORDERED: ALBUTEROL SULFATE/IPRATROPIU 3 ML SOL IH ONE ×3 (07:05→18:46)
--- NOTE | 2017-09-17 07:27 | NUR ---
ENDORSED CARE AT BEDSIDE WITH HILARIO RN, PATIENT IN STABLE CONDITION.
--- NOTE | 2017-09-17 07:27 | NUR ---
RECEIVED REPORT FROM NIGHTSHIFT NURSE AT BEDSIDE. PATIENT IS ASLEEP BUT AROUSABLE TO HIS NAME AT THIS TIME. PATIENT IS ON 5L OXIMIZER AT THIS TIME. PATIENT IS AT 97% O2 SATURATION. PATIENT A&OX3 AT THIS TIME. PATIENT SHOWS NO SIGNS RESPIRATORY DISTRESS OR DEPRESSION. UPDATED PATIENT'S BOARD WITH FALL PRECAUTIONS INITIATED. WILL CONTINUE TO MONITOR PATIENT.
--- NOTE | 2017-09-17 07:28 | NUR ---
PT REFUSED HHN TX. PT SAID HE WANTS TO SLEEP. NO SOB OR DISTRESS NOTED. WILL CONTINUE TO MONITOR.
[2017-09-17 08:00] VITALS: BP 93/50
[2017-09-17] MEDS ORDERED: PANTOPRAZOLE 40 MG INJ VIAL IVP ONE (08:06)
[2017-09-17] MEDS ORDERED: CALCIUM ACETATE 667 MG TAB ONE ×2 (08:06→17:30)
[2017-09-17] MEDS ORDERED: CALCIUM CARB/VIT-D 500 MG/200 IU 1 TAB ONE ×2 (08:07→21:38)
[2017-09-17] MEDS ORDERED: LACTOBACILLUS RHAMNOSUS GG 1 EACH CAP ONE (08:08)
[2017-09-17] MEDS ORDERED: QUEtiapine FUMARATE 100 MG TAB ONE ×2 (08:09→21:39)
--- NOTE | 2017-09-17 08:24 | NUR ---
CHANGED O2 DEVICE FROM OXYMIZER TO 2 L NC. SPO2 96%. RN MONY AT BEDSIDE. PT DENT WANT ANYTHING TO GET DONE AND JUST WANTS TO SLEEP. NO SOB OR DISTRESS NOTED.
--- NOTE | 2017-09-17 09:39 | NUR ---
PATIENT SEEN BY PHYSICAL THERAPY. PATIENT ABLE TO WALK AROUND THE NURSING UNIT WITH WALKER. PATIENT TOLERATED WELL. WILL CONTINUE TO MONITOR PATIENT
[2017-09-17] MEDS: CALCIUM ACETATE 667 MG TAB PO SCH ×2 (09:48→17:40)
[2017-09-17] MEDS: CALCIUM CARB/VIT-D 500 MG/200 IU 1 TAB PO SCH ×2 (09:48→21:43)
[2017-09-17] MEDS: QUEtiapine FUMARATE 100 MG TAB PO SCH ×2 (09:49→21:43)
[2017-09-17] MEDS: LACTOBACILLUS RHAMNOSUS GG 1 EACH CAP PO SCH (09:49)
[2017-09-17] MEDS: PANTOPRAZOLE 40 MG INJ VIAL IVP SCH (09:50)
--- NOTE | 2017-09-17 09:54 | NUR ---
PATIENT'S DAUGHTER IS AT BEDSIDE. PATIENT IS AWAKE. A&OX3 AT THIS TIME. PATIENT SHOWS NO SIGNS OF RESPIRATORY DISTRESS. WILL CONTINUE TO MONITOR THE PATIENT.
--- NOTE | 2017-09-17 13:08 | NUR ---
PT REFUSED HHN TX. PT IS VERY SRUDE. CALLED SECURITY FOR HIM. SECURITY IS AT BEDSIDE.
[2017-09-17 13:23] VITALS: BP 93/62
--- NOTE | 2017-09-17 13:31 | NUR ---
Spoke to Coral at [facility] at [phone] option 3. and will need to submit request for authorization and clinical review. Per Coral, it takes a day to give an authorization after counter casertax compliance manager the needs.
--- NOTE | 2017-09-17 13:58 | NUR ---
Clinical review, request for SNF auth., and Labs, Physician order faxed to [facility] correctional casework specialist at [phone] and per Coral that takes at least 24 hours to return a call back.
--- NOTE | 2017-09-17 14:34 | NUR ---
CM NOTE PER DAVE OF [facility], THEY CANNOT TAKE THE PATIENT BECAUSE THEY ARE NOT CONTRACTED WITH PATIENT'S INSURANCE. PER JUN OF [facility], NO BED AVAILABLE. FAXED INQUIRY TO [facility], PER ANGELIQUE THEY WILL HAVE TO REVIEW PACKET AND WILL LET US KNOW IF THEY CAN TAKE THE PATIENT OR NOT. PER PURVI OF [facility] # [phone] OPTION 3,3, PATIENT IS A MANAGED MEDI-ASHANTI AND TO SEND REVIEWS TO FAX# [phone] ATTN: NICOLÁS Zapata REF# [id number]. INFORMED HER THAT PATIENT WAS ADMITTED SELF-PAY AND WE JUST FOUND OUT THAT PATIENT HAS [facility]. PER PURVI, THERE WILL BE ANOTHER PERSON ASSIGNED FOR DISCHARGE NEEDS AND TO WAIT FOR A CALL BACK FOR AT LEAST 24 HOURS AFTER FAXING THE SNF AUTHORIZATION REQUEST FORM. SNF AUTHORIZATION REQUEST FORM FAXED TO [phone].
[2017-09-17] MEDS ORDERED: LEVOFLOXACIN 750 MG/D5W PREMIX 150 ML IV ONE (14:55)
[2017-09-17] MEDS: LEVOFLOXACIN 750 MG/D5W PREMIX 150 ML IV SCH (14:58)
--- NOTE | 2017-09-17 15:00 | NUR ---
PATIENT IS ASLEEP AT THIS TIME. PATIENT SATURATION IS AT 98%. WILL CONTINUE TO MONITOR PATIENT.
[2017-09-17 15:47] VITALS: BP 100/74
--- NOTE | 2017-09-17 17:54 | NUR ---
Faxed clinicals and face sheet and order to Beau at [facility] at [phone]. Beau called back and stated that [facility] not contracted with this insurance and to call insurance and ask to send to contracted, provider hospital. [facility] is not a patient's provider.
--- NOTE | 2017-09-17 19:12 | NUR ---
GAVE BEDSIDE REPORT TO NIGHTSHIFT NURSE. TOOK OFF PATIENT'S TELE MONITOR. PATIENT IS IN STABLE CONDITION.
--- NOTE | 2017-09-17 19:20 | NUR ---
RECEIVED FROM AM RN IN BED SLEEPING. WOKE UP WHEN TOUCHED. CALL LIGHT WITH IN REACH. ORIENTED TO ROOM AND NURSE. ENCOURAGED TO CALL FOR ANY HELP HE MAY NEED OR IF IN PAIN. PT. DX. CHANGE OF LOC AND DIFFICULTY BREATHING. PT. AT THIS TIME ON THE FLOOR/MEDICAL SURGICAL AND BREATHING GOOD IN ROOM AIR. HEP LOCKED. IVF SITE TO RFA#20. ROM X 4. CLEAR SPEECH. ABLE TO VERBALIZE NEEDS WELL IN INDONESIAN. ENCOURAGED TO CALL FOR NURSE OR EDUCATIONAL RECRUITER IF HE NEEDS HELP OR IF IN PAIN. "OK"
--- NOTE | 2017-09-17 23:11 | NUR ---
PT. REFUSED TO HAVE HEPARIN SQ SHOT ORDERED. VERY FEISTY AND SHOUTING "NO". UNABLE TO EXPLAIN PROS AND CONS RT HE STATED THAT HE HAD IT ONCE AND THAT IS IT. NO MORE. INFORMED CHARGE NURSE. PT. ONLY TOOK P.O. MEDS. WENT BACK TO SLEEP AFTER.
[2017-09-18] MEDS: ALBUTEROL SULFATE/IPRATROPIU 3 ML SOL IH SCH ×4 (00:01→19:00)
--- NOTE | 2017-09-18 00:01 | NUR ---
WOKE PATIENT UP AND HE STATED HE DOES NOT WANT HHN MEDICATION TREATMENT AND HE WILL TAKE IT IN THE MORNING
--- NOTE | 2017-09-18 02:29 | NUR ---
SLEEPING WELL. ABLE TO VERBALIZE NEEDS WELL. NO RESTLESSNESS NOTED.
[2017-09-18] MEDS ORDERED: LEVOTHYROXINE 0.05 MG TAB ONE (05:11)
[2017-09-18] MEDS: SODIUM CHLORIDE FLUSH 10 ML SYR IVF SCH ×3 (05:13→21:01)
[2017-09-18] MEDS: LEVOTHYROXINE 0.05 MG TAB NG SCH (05:13)
[2017-09-18] MEDS: PIPER/TAZO 3.375GM/D5W PREMIX 50 ML IV SCH ×3 (05:13→18:14)
--- NOTE | 2017-09-18 05:45 | NUR ---
BEEN SLEEPING WELL. REFUSED TO HAVE BLOOD SPECIMEN TAKEN FOR THIS AM PER LAB. TECH. PT. REFUSED TO LISTEN TO PROS AND CONS.
[2017-09-18] MEDS ORDERED: ALBUTEROL SULFATE/IPRATROPIU 3 ML SOL IH ONE ×2 (07:02→13:15)
--- NOTE | 2017-09-18 07:11 | NUR ---
PT. BEEN SLEEPING WELL THIS SHIFT. REFUSED TO BE DISTURBED.ENDORSED TO THE NEXT RN FOR CONTINUITY OF CARE. NO PAIN COMPLAINTS DONE. FATHER WATCHING OVER PT. IVF SITE INTACT AND NO INFILTRATION. Addendum: 09/20/17 at 1934 by Lima Garcia RN WRONG ENTRY ABOVE. PT. BEEN SLEEPING WELL. REFUSED TO BE DISTURBED. GETS ANGRY WHEN DISTURBED. ENDORSED TOT HE NEXT RN FOR CONTINUITY OF CARE.
--- NOTE | 2017-09-18 07:15 | NUR ---
ENDORSEMENT RECEIVED FROM TELEVISION MECHANIC NURSE. PATIENT IS SLEEPING COMFORTABLY. RESPIRATION EVEN, UNLABOR ON 2L NC. SKIN DRY AND WARM. IV PATENT AND INTACT. NO DISTRESS NOTED AT THIS TIME. CALL LIGHT WITHIN REACH. BED AT LOW POSITION
[2017-09-18 08:00] VITALS: BP 97/56
[2017-09-18] MEDS ORDERED: PANTOPRAZOLE 40 MG INJ VIAL IVP ONE (08:48)
[2017-09-18] MEDS ORDERED: CALCIUM ACETATE 667 MG TAB ONE (08:48)
[2017-09-18] MEDS ORDERED: LACTOBACILLUS RHAMNOSUS GG 1 EACH CAP ONE (08:49)
[2017-09-18] MEDS ORDERED: CALCIUM CARB/VIT-D 500 MG/200 IU 1 TAB ONE (08:49)
[2017-09-18] MEDS ORDERED: QUEtiapine FUMARATE 100 MG TAB ONE ×2 (08:49→10:25)
[2017-09-18] MEDS: PANTOPRAZOLE 40 MG INJ VIAL IVP SCH (10:26)
[2017-09-18] MEDS: LACTOBACILLUS RHAMNOSUS GG 1 EACH CAP PO SCH (10:27)
[2017-09-18] MEDS: QUEtiapine FUMARATE 100 MG TAB PO SCH ×2 (10:27→20:55)
[2017-09-18] MEDS: CALCIUM ACETATE 667 MG TAB PO SCH ×2 (10:27→17:26)
[2017-09-18] MEDS: CALCIUM CARB/VIT-D 500 MG/200 IU 1 TAB PO SCH ×2 (10:27→20:54)
--- NOTE | 2017-09-18 10:30 | NUR ---
PATIENT IS SLEEPING COMFORTABLY, EASILY AROUSABLE BY NAME. RESPIRATION EVEN, UNLABOR ON 2L NC. MEDICATION WAS GIVEN PER ORDER. PT AT BEDSIDE. DENIED PAIN AT THIS TIME. CALL LIGHT WITHIN REACH
--- NOTE | 2017-09-18 13:00 | NUR ---
PATIENT IS SLEEPING COMFORTABLY. RESPIRATION EVEN, UNLABOR ON ROOM AIR. NO DISTRESS NOTED AT THIS TIME. CALL LIGHT WITHIN REACH. MED WAS GIVEN PER ORDER
--- NOTE | 2017-09-18 14:30 | NUR ---
CM NOTE PER JUN OF [facility] AND [place] OF [facility] [place] CANNOT TAKE THE PATIENT BECAUSE THEY ARE NOT CONTRACTED WITH PATIENT'S INSURANCE. RECEIVED FAX FROM [facility], ANALIA KRAMER RN STATING THAT THIS HOSPITAL ADMISSION IS APPROVED AUTH# [id number]. SPOKE WITH ANALIA KRAMER RN PH# [phone] OF [facility] AND SHE SAID THAT THEY DO NOT NEED ANY FURTHER REVIEWS SENT TO THEM BUT SHE REQUESTED THE LATEST PHYSICAL THERAPY NOTES AND PSYCH CONSULT TO BE FAXED. FAXED THE LATEST PHYSICAL THERAPY NOTES AND PSYCH CONSULT TO [phone]. PER ANALIA Tidwell RN, [facility] DOES NOT HAVE ANY CONTRACTED SNF IN [place]. DR. TIO GRAJEDA.
[2017-09-18] MEDS ORDERED: LEVOFLOXACIN 750 MG/D5W PREMIX 150 ML IV ONE (15:28)
[2017-09-18] MEDS: LEVOFLOXACIN 750 MG/D5W PREMIX 150 ML IV SCH (15:30)
--- NOTE | 2017-09-18 15:53 | NUR ---
09/18/17 RD FOLLOW UP COMPLETED. PLEASE REFER TO NUTRITION PROGRESS NOTE UNDER CARE ACTIVITY FOR ESTIMATED NUTRITION NEEDS. 1.SWALLOW EVAL COPMPLETEDON 09/16, BLOCKER METAL BASE REC: MECHANICAL SOFT, THIN LIQUIDS. CURRENT NURSING NOTED INTAKE 50-75-75%. DIETARY WILL ASSIST WITH MENU SELECTIONS AND ENCOURAGE INTAKE DAILY. 2.RD TO FOLLOW-UP 3-5 DAYS, MODERATE RISK LA NENA WATTS, RD
[2017-09-18 16:00] VITALS: BP 88/58
--- NOTE | 2017-09-18 16:00 | NUR ---
PATIENT IS SLEEPING COMFORTABLY. RESPIRATION EVEN, UNLABOR ON ROOM AIR. DENIED PAIN AT THIS TIME. VS WAS TAKEN. CALL LIGHT WITHIN REACH
--- NOTE | 2017-09-18 18:20 | NUR ---
PATIENT IS AWAKE, ALERT. RESPIRATION EVEN, UNLABOR ON 2L NC. IV WAS REMOVED FROM RIGHT FOREARM, CATHETER INTACT, NO ACTIVE BLEEDING SEEN, PATIENT TOLERATED WELL. MED WAS GIVEN PER ORDER. CALL LIGHT WITHIN REACH
--- NOTE | 2017-09-18 19:21 | NUR ---
PT REFUSED HHN TX. PT IS VERY RUDE. DAY AND RECREATIONAL FACILITIES MOTEL MANAGER NURSES BOTH IN ROOM. HHN TX NOT GIVEN. REFUSED ANYTHING TO GET DONE INCLUDING ASSESSMENT. Addendum: 09/18/17 at 1930 by Sherri Aguilar RT CHARGE NURSE ELIZABETH AWARE. ALSO NURSE SET UP OPERATOR HAKEEM GRAJEDA.
--- NOTE | 2017-09-18 19:26 | NUR ---
ENDORSEMENT GIVEN TO THE ARTIST WOODBLOCK NURSE. PATIENT IS STABLE AT THIS TIME.
--- NOTE | 2017-09-18 19:27 | NUR ---
RECEIVED REPORT FROM DAY NURSE CHETAN RN, PT IN STABLE CONDITION. NO S/S OF DISTRESS NOTED. PT IS AAOX4, ON 2L O2 VIA NC. SKIN IS INTACT, IV TO R HAND 20G, PATENT AND INTACT. SKIN IS WARM AND DRY TO TOUCH, COLOR WNL. INITIAL ASSESSMENT COMPLETED. PLAN OF CARE DISCUSSED WITH PT AT THE BEDSIDE, ALL SAFETY PRECAUTIONS MET, CALL LIGHT WITHIN REACH, WILL CONTINUE TO MONITOR, BOARD UPDATED
--- NOTE | 2017-09-18 19:30 | NUR ---
PT REFUSING BREATHING TREATMENT AT THIS TIME, PT STATES, THAT RESPIRATORY IS, "GIVING HIM ATTITUDE, I DO NOT LIKE HER ATTITUDE AND I DON'T WANT HER GIVING ME ANYTHING." RESPIRATORY CALMLY ASKED PT, "WOULD YOU LIKE YOUR BREATHING TREATMENT?" PT NON COMPLIANT. I EDUCATED PT ON THE IMPORTANCE OF BREATHING TREATMENTS AND THAT WE ARE HERE TO HELP HIM GET BETTER. PT VERBALIZED UNDERSTANDING, AND SAID "I WILL TAKE IT IF YOU THINK I SHOULD TAKE IT." Addendum: 09/19/17 at 0128 by Yanna Hendrix RN RESPIRATORY MADE AWARE THAT PT WILL COMPLY
[2017-09-19] VITALS: BP 90/55
[2017-09-19] MEDS: PIPER/TAZO 3.375GM/D5W PREMIX 50 ML IV SCH ×3 (00:11→11:57)
--- NOTE | 2017-09-19 00:20 | NUR ---
PT FOUND RESTING COMFORTABLY IN BED, NO S/S OF DISTRESS. WOKE PT UP WHEN TAKING BLOOD PRESSURE. PT STATES HE FEELS HE IS HAVING A HARD TIME BREATHING AND IS FEELING SOB. VS WNL O2 SAT: 98%. CALLED RT TO LET THEM KNOW PT WANTS BREATHING TREATMENT, THEY WILL COME TO GIVE.
[2017-09-19] MEDS: ALBUTEROL SULFATE/IPRATROPIU 3 ML SOL IH SCH ×2 (00:25→07:29)
[2017-09-19] MEDS: SODIUM CHLORIDE FLUSH 10 ML SYR IVF SCH (04:50)
[2017-09-19] MEDS: LEVOTHYROXINE 0.05 MG TAB NG SCH (06:31)
--- NOTE | 2017-09-19 07:10 | NUR ---
RECEIVED PATIENT REPORT AT BEDSIDE. PATIENT ASLEEP BUT AROUSABLE. NO S/S OF DISTRESS NOTED. PATIENT ON 2L O2. NO SOB NOTED. NO C/O PAIN AT THIS TIME. IV NOTED TO THE RIGHT HAND WITH IVF INFUSING WELL. BED LOWERED WITH CALL LIGHT WITHIN REACH. WILL CONTINUE TO MONITOR
--- NOTE | 2017-09-19 07:31 | NUR ---
GAVE REPORT TO DAY NURSE, PT IN STABLE CONDITION. NO S/S OF DISTRESS NOTED. IV PATENT AND INTACT.
[2017-09-19 07:56] VITALS: BP 108/56
[2017-09-19] MEDS: PANTOPRAZOLE 40 MG INJ VIAL IVP SCH (08:40)
[2017-09-19] MEDS: LACTOBACILLUS RHAMNOSUS GG 1 EACH CAP PO SCH (08:40)
[2017-09-19] MEDS: CALCIUM CARB/VIT-D 500 MG/200 IU 1 TAB PO SCH (08:40)
[2017-09-19] MEDS: CALCIUM ACETATE 667 MG TAB PO SCH (08:40)
[2017-09-19] MEDS: QUEtiapine FUMARATE 100 MG TAB PO SCH (08:40)
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
--- NOTE | 2017-09-19 09:15 | NUR ---
On 09/18/17 at about 15:30 I Attempted to talk to Patient's daughter Luli Jeffries at . No response and I left her a MSG to call me back as soon as possible.
[2017-09-19] MEDS ORDERED: methylPREDNISolone SS 40 MG/ML VIAL IVP SCH ×2 (09:43→13:00)
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
[2017-09-19] MEDS ORDERED: SYN.05 NG (12:21)
[2017-09-19] MEDS ORDERED: METH4TAB3 PO (12:21)
[2017-09-19] MEDS ORDERED: QUET300T1 PO (12:21)
--- NOTE | 2017-09-19 12:25 | NUR ---
PATIENT HAD LUNCH. PT ON ROOM AIR. O2 SAT 94%. NO S/S OF DISTRESS NOTED
--- NOTE | 2017-09-19 12:53 | NUR ---
PATIENT DISCHARGED. PATIENT GIVEN DISCHARGE INSTRUCTIONS AND DISCHARGE PRESCRIPTIONS GIVEN BY DR KINSEY. IV LINE DISCONTINUED. TRANSPORTATION ARRANGED FOR THE PATIENT. PATIENT LEFT WITH ALL HIS BELONGINGS AND DISCHARGED PAPERS. PATIENT LEFT IN STABLE CONDITION
== END 2017-09-19 12:57 | disposition home or self-care (01) | DRG 720 ==
LOC: MED 05:40 → MIC 07:53 → MTU 09-16 04:15
PROVIDERS: ADMIT Family Medicine Sports Medicine; ATTEND Family Medicine Sports Medicine
PROC: 5A1955Z Respiratory Ventilation, Greater than 96 Consecutive Hours (ICD-10-PCS; principal; 2017-09-04)
PROC: 0BH17EZ Insertion of Endotracheal Airway into Trachea, Via Natural or Artificial Opening (ICD-10-PCS; 2017-09-04)
PROC: 5A1935Z Respiratory Ventilation, Less than 24 Consecutive Hours (ICD-10-PCS; 2017-09-04)
DX: A41.9 Sepsis, unspecified organism (principal); N17.0 Acute kidney failure with tubular necrosis; J96.21 Acute and chronic respiratory failure with hypoxia; R65.21 Severe sepsis with septic shock; E03.5 Myxedema coma; J69.0 Pneumonitis due to inhalation of food and vomit; G92 Toxic encephalopathy; R31.9 Hematuria, unspecified; E43 Unspecified severe protein-calorie malnutrition; A69.0 Necrotizing ulcerative stomatitis; E83.51 Hypocalcemia; E87.6 Hypokalemia; F17.210 Nicotine dependence, cigarettes, uncomplicated; F16.90 Hallucinogen use, unspecified, uncomplicated; R45.4 Irritability and anger; R59.9 Enlarged lymph nodes, unspecified; N18.6 End stage renal disease; J38.7 Other diseases of larynx; F41.9 Anxiety disorder, unspecified; T50.901A Poisoning by unspecified drugs, medicaments and biological substances, accidental (unintentional), initial encounter; R74.0 Nonspecific elevation of levels of transaminase and lactic acid dehydrogenase [LDH]; R73.03 Prediabetes; F31.9 Bipolar disorder, unspecified; F41.1 Generalized anxiety disorder; E66.9 Obesity, unspecified; D53.9 Nutritional anemia, unspecified; J45.909 Unspecified asthma, uncomplicated; E83.39 Other disorders of phosphorus metabolism; F15.10 Other stimulant abuse, uncomplicated; E78.5 Hyperlipidemia, unspecified; E03.9 Hypothyroidism, unspecified; F20.9 Schizophrenia, unspecified; R80.9 Proteinuria, unspecified; Z85.819 Personal history of malignant neoplasm of unspecified site of lip, oral cavity, and pharynx; Z85.850 Personal history of malignant neoplasm of thyroid; Z68.37 Body mass index [BMI] 37.0-37.9, adult
CPT/HCPCS: 31500; 36415; 36600; 51702; 70491; 71045; 71260; 74018; 76536; 76604; 80048; 80053; 80305; 81001; 82040; 82150; 82533; 82607; 82728; 82746; 82803; 83036; 83540; 83605; 83690; 83735; 83880; 83970; 84100; 84436; 84439; 84443; 84479; 84484; 85025; 85045; 85610; 85730; 87040; 87070; 87081; 87086; 87205; 92610; 93005; 94003; 94640; 96361; 96365; 97110; 97116; 97140; 97530; 97799; 99291; C9113; J0610; J1644; J1720; J1940; J1956; J2060; J2250; J2270; J2405; J2543; J2704; J2920; J3010; J3480; J3490; J7030; J7620; Q0092; Q9967